=== PATIENT | female | born 1945 | race Caucasian/White ===

== ENCOUNTER → 2016-09-13 | Outpatient (CLI) | payer OTHER ==
[~2016-09-13] MED LIST: ASPI81TA28 PO; CALC600T9 PO; CARV12.52 PO; CINN1CAP2 PO; CRAN1CAP15 PO; FLUT27.5; GABA1CAP5 PO; GABA800T PO; GLC/500 PO; HYZ/50125 PO; MULTTAB58 PO; NXM/40 PO; OMEG10007 PO; PRED1SUS3 OPR; SIMV10TA2 PO; TERA5CAP PO
[2016-09-13 13:09] LABS: ALT/SGPT 23 U/L (12-78); BLOOD UREA NITROGEN 25 mg/dl (7-18); BUN/CREATININE RATIO 32.8 (10-20); CALCIUM 9.1 mg/dl (8.5-10.1); CARBON DIOXIDE 31 mmol/L (21-32); CHLORIDE 103 mmol/L (98-107); CHOLESTEROL 176 mg/dl (0-200); CREATININE 0.75 mg/dl (0.60-1.20); GLUCOSE 117 mg/dl (70-99); POTASSIUM 3.7 mmol/L (3.5-5.1); SODIUM 142 mmol/L (136-145)
[2016-09-13 13:12] LABS: ALB/GLOB RATIO 1.1 (0.9-2); ALKALINE PHOSPHATASE 42 U/L (45-117); AST/SGOT 18 U/L (15-37); CHOLESTEROL/HDL RATIO 3.2; HDL CHOLESTEROL 55 mg/dl; LDL CHOLESTEROL CALCULATED 84 mg/dl; TRIGLYCERIDES 184 mg/dl (0-150); VERY LOW DENSITY LIPOPROT CALC 37 mg/dl
[2016-09-13 13:50] LABS: ESTIMATED AVERAGE GLUCOSE 140 mg/dl; HA1C FLAG Normal (Normal)
== END | disposition home or self-care (01) ==
LOC: C.LABBFT 07:59
PROVIDERS: ATTEND Nurse Practitioner
DX: E11.9 Type 2 diabetes mellitus without complications (principal)

== ENCOUNTER → 2016-09-29 | Outpatient (CLI) | payer OTHER ==
--- NOTE | 2016-09-29 11:22 | DIAGNOSTIC IMAGING REPORT ---
RIGHT FOOT 3 VIEWS CLINICAL HISTORY: Right foot injury. FINDINGS: 3 views of the right foot are obtained. No prior studies are available for comparison at the time of dictation. The skeletal structures are osteopenic. A high arch is noted. No acute fracture is seen. The joint spaces of the foot appear well-maintained. The overlying soft tissues are within normal limits. IMPRESSION: Generalized osteopenia. No acute bony abnormality is seen. Electronically signed by: Buck Magaña M.D. 09/29/2016 11:20 AM Dictated Date/Time: 09/29/2016 11:19 AM
== END | disposition home or self-care (01) ==
LOC: C.RAD1850 10:28
PROVIDERS: ATTEND Nurse Practitioner
DX: S99.929A Unspecified injury of unspecified foot, initial encounter (principal); X58.XXXA Exposure to other specified factors, initial encounter; M85.871 Other specified disorders of bone density and structure, right ankle and foot

== ENCOUNTER → 2017-03-31 | Outpatient (CLI) | payer OTHER ==
[2017-03-31 13:04] LABS: ESTIMATED AVERAGE GLUCOSE 140 mg/dl; HA1C FLAG Normal (Normal)
[2017-03-31 13:19] LABS: ALT/SGPT 22 U/L (12-78); AST/SGOT 16 U/L (15-37); BLOOD UREA NITROGEN 20 mg/dl (7-18); BUN/CREATININE RATIO 28.8 (10-20); CALCIUM 8.6 mg/dl (8.5-10.1); CARBON DIOXIDE 31 mmol/L (21-32); CHLORIDE 105 mmol/L (98-107); CREATININE 0.69 mg/dl (0.60-1.20); GLUCOSE 117 mg/dl (70-99); POTASSIUM 3.6 mmol/L (3.5-5.1); SODIUM 142 mmol/L (136-145)
[2017-03-31 13:21] LABS: ALB/GLOB RATIO 1.1 (0.9-2); ALKALINE PHOSPHATASE 41 U/L (45-117); CHOLESTEROL 176 mg/dl (0-200); CHOLESTEROL/HDL RATIO 3.5; HDL CHOLESTEROL 50 mg/dl; LDL CHOLESTEROL CALCULATED 82 mg/dl; TRIGLYCERIDES 220 mg/dl (0-150); VERY LOW DENSITY LIPOPROT CALC 44 mg/dl
== END ==
LOC: C.LABBFT 08:18
PROVIDERS: ATTEND Nurse Practitioner
DX: E11.9 Type 2 diabetes mellitus without complications (principal); M85.80 Other specified disorders of bone density and structure, unspecified site

== ENCOUNTER → 2017-09-21 | Outpatient (CLI) | payer OTHER ==
[~2017-09-21] MED LIST changes: +GABA-1220 PO; -GABA1CAP5 PO
[2017-09-21 12:42] LABS: HEMATOCRIT 40.8 % (37-47); HEMOGLOBIN 13.6 g/dL (12.0-16.0); MEAN CELL VOLUME 88.1 fL (80-100); MEAN CORPUSCULAR HEMOGLOBIN 29.4 pg (25-34); MEAN CORPUSCULAR HGB CONC 33.3 g/dl (32-36); MEAN PLATELET VOLUME 12.1 fL (7.4-10.4); PLATELET COUNT 181 K/uL (130-400); RED CELL DISTRIBUTION WIDTH CV 14.4 % (11.5-14.5); RED CELL DISTRIBUTION WIDTH SD 46.4 fL (36.4-46.3); WHITE BLOOD COUNT 4.26 K/uL (4.8-10.8)
[2017-09-21 13:09] LABS: ALBUMIN 3.5 gm/dl (3.4-5.0); ALT/SGPT 24 U/L (12-78); AST/SGOT 17 U/L (15-37); BLOOD UREA NITROGEN 19 mg/dl (7-18); CALCIUM 8.9 mg/dl (8.5-10.1); CARBON DIOXIDE 30 mmol/L (21-32); CREATININE 0.76 mg/dl (0.60-1.20); GLUCOSE 119 mg/dl (70-99); POTASSIUM 3.6 mmol/L (3.5-5.1); SODIUM 141 mmol/L (136-145)
[2017-09-21 13:11] LABS: ALKALINE PHOSPHATASE 43 U/L (45-117); CHOLESTEROL 161 mg/dl (0-200); LDL CHOLESTEROL CALCULATED 67 mg/dl
[2017-09-21 13:14] LABS: HEMOGLOBIN A1C 6.6 % (4.5-5.6)
== END | disposition home or self-care (01) ==
LOC: C.LABBFT 08:04
PROVIDERS: ATTEND Nurse Practitioner Family
DX: E11.9 Type 2 diabetes mellitus without complications (principal)

== ENCOUNTER → 2017-10-06 | Outpatient (CLI) | payer OTHER | LOC: C.LABBFT 08:08 | PROVIDERS: ATTEND Nurse Practitioner | DX: N39.0 Urinary tract infection, site not specified (principal) ==

== ENCOUNTER 2023-02-08 07:29 | Inpatient (IN) ==
--- NOTE | 2023-02-02 14:48 | Anesthesiology Consultation ---
Date of Service February 02, 2023 Assessment & Plan (1) Encounter for pre-operative examination: Plan - check BSG am DOS. - Case discussed in extensive detail with Dr. Rinaldi who advised patient is acceptable to proceed with surgery as scheduled without further evaluation, testing or intervention from his standpoint. - right arm restriction. - [facility] [employer] note 01/25/23 [place]: "...Readings reviewed on [facility] this morning, patients BP was found to be elevated at 213/94, this was 2 hours after medication administration. She was scheduled to have a lung biopsy today in , this unfortunately had to be canceled due to elevated BP. Most recent home readings: 148/58 134/57 166/72 167/69 She stated she is apprehensive to increase spironolactone at this time since it has really increased her urinary output. She stated she is taking it in the morning and is up all night urinating, wondering if she can take it in the evening instead. I told her this would likely be fine although it may make this worse...increase terazosin to 10mg BID. - Will monitor BP readings on [facility], and call patient is further adjustments needed. She is tolerating the increase in her coreg well..." - 08/24/22 urine metanephrine 128; urine normetanephrine 507, U total metanephrines 635. - HTN clinic 01/11/23 [place]: "...Pheochromocytoma ruled out by 24 hour urine metanephrines which were within range...Adrenal nodule- Renin/Aldosterone ration suspicous for form of hyperaldosteronism, agree with spironolactone, appears to so far be responding well to the medication. large descripency in her home BP readings versus in office today. Could benefit from further increase to 50mg if indicated in the future. 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 I did have conversation with the patient after procedure and she did not wish to pursue biopsy evaluation at that time and was hoping for watchful waiting. We agreed on a 3-month follow-up CT to evaluate lesion. Unfortunately, it appears to have either slightly increased in size versus maintained. Regardless, the given the patient's clinical history, smoking history, and suspicious findings on CT, bronchogenic malignancy does remain the diagnosis of exclusion. I did relay this information to the patient. She was initially hesitant to have anything performed, however I explained to her that evaluation was necessary for early treatment and I am unable to say that this is not a malignancy based on the procedure previously performed. I had discussed the case with radiology. They reviewed the images and felt that CT-guided biopsy is able to be performed. I did review this with the patient. She does agree to undergo CT-guided biopsy. Had a lengthy discussion regarding risks, benefits, and alternatives. She acknowledges the risks and consents. Will arrange CT-guided biopsy within the next few weeks to hopefully obtained definitive diagnosis moving forward. COPD and emphysema - CT demonstrates e mphysematous changes. Previously, the patient had no significant respiratory symptoms. She has since had an episode of bronchitis and has now had persistent cough and some occasional shortness of breath on exertion. She was noted to have an FEV1 to FVC ratio of 54% at that time. We had held off previously on inhalers as the patient was completely asymptomatic at that time. Given her return of symptoms and occasional use of albuterol, we will place the patient on LABA/LAMA combination. We will provide the patient with a sample of Stiolto today and see how she does with this medication. We can provide her with a prescription moving forward if she notices clinical benefit. She can continue to use her rescue inhaler otherwise..." - Per professor of exercise science on 02/02/2023: No known infectious disease contacts, current infectious disease symptoms in past 10 days or COVID positive test result in the past 90 days. Chart Review Chart Review: Acceptable Risk for Surgery and Patient NOT seen in Pre Admission Testing History Surgery Operation Date: 02/08/23 09:30 Proposed Procedures p Biopsy Lung CT Scan Anesthesia Sedation - Dillan Peters PA-C Height/Weight Height: 5 ft 4 in Weight: 54.431 kg Allergies Allergy/AdvReac Type Severity Reaction Status Date / Time amoxicillin Allergy Unknown hives, Verified 02/02/23 14:03 nausea cephalexin [From Keflex] Allergy Unknown Rash Verified 02/02/23 14:03 ciprofloxacin [From Cipro] Allergy Unknown Hives Verified 02/02/23 14:03 codeine Allergy Unknown hives, Verified 02/02/23 14:03 nausea (percocet is ok per pt) Iodinated Contrast Media Allergy Unknown HIVES Verified 02/02/23 14:03 nitrofurantoin Allergy Unknown shortness Verified 02/02/23 14:03 [From Macrobid] of breath Penicillins Allergy Unknown Rash Verified 02/02/23 14:03 trimethoprim Allergy Unknown Hives Verified 02/02/23 14:03 amlodipine AdvReac Unknown Dizziness Verified 02/02/23 14:03 blue dye AdvReac Unknown SUICIDAL Verified 02/02/23 14:03 THOUGHTS, HALLUCINATIONS duloxetine AdvReac Unknown high Verified 02/02/23 14:03 anxiety pollen extracts AdvReac Unknown cough and Verified 02/02/23 14:03 sinus drainage tramadol AdvReac Unknown SHAKINESS, Verified 02/02/23 14:03 NAUSEA/high anxiety chlorthalidone AdvReac Verified 02/02/23 14:03 Medications Home Medications Medication Instructions Recorded Confirmed Last Taken multivitamin 1 tab PO QAM #30 tabs 10/28/21 02/02/23 12/25/22 losartan 50 mg tablet 50 mg PO BID #180 tabs 06/01/22 02/02/23 12/26/22 metformin 1,000 mg tablet 500 mg PO TID 06/01/22 02/02/23 12/25/22 blood sugar diagnostic (OneTouch #200 ea 07/12/22 01/11/23 Unknown Verio test strips) ascorbic acid (vitamin C) 1,000 mg 1,000 mg PO QAM 08/03/22 02/02/23 12/25/22 tablet,extended release aspirin 81 mg tablet,delayed 81 mg PO HS 08/03/22 02/02/23 12/25/22 release cranberry 500 mg capsule 450 mg PO QAM 08/03/22 02/02/23 12/25/22 gabapentin 400 mg capsule 400 - 800 mg PO BID 08/03/22 02/02/23 12/26/22 omega 8-rhr-eqo-fish oil 1,000 mg 1 cap PO QAM 08/03/22 02/02/23 12/25/22 (120 mg-180 mg) capsule (Fish Oil) esomeprazole magnesium 40 mg 20 mg PO QDD 09/28/22 02/02/23 12/26/22 capsule,delayed release albuterol sulfate 90 mcg/actuation 2 puff inhalation QID PRN 11/21/22 02/02/23 11/22/22 aerosol inhaler shortness of breath or wheezing #8.5 grams alendronate 70 mg tablet 70 mg PO WK 12/15/22 02/02/23 12/25/22 cholecalciferol (vitamin D3) 50 50 mcg PO QAM 12/15/22 02/02/23 12/25/22 mcg (2,000 unit) capsule (Vitamin D3) fluticasone propionate 50 1 spray intranasal UD PRN 12/15/22 02/02/23 Unknown mcg/actuation nasal Congestion spray,suspension (Flonase Allergy Relief) rosuvastatin 20 mg tablet 20 mg PO HS 12/15/22 02/02/23 12/25/22 terazosin 10 mg capsule 10 mg PO BID #90 caps 01/25/23 02/02/23 Unknown carvedilol 25 mg tablet 25 mg PO BID #180 tabs 02/01/23 02/02/23 Unknown tiotropium 2.5 mcg-olodaterol 2.5 2 puff inhalation DAILY #4 grams 02/01/23 02/02/23 Unknown mcg/actuation mist for inhalation (Stiolto Respimat) spironolactone 25 mg tablet 25 mg PO QAM 02/02/23 02/02/23 Unknown Past Medical History Medical History (Updated 02/02/23 @ 14:38 by Bella Henderson PA-C) Acid reflux CAD (coronary artery disease) Chronic obstructive pulmonary disease History of breast cancer X2 (21 YR AGO/HX RADIATION) MOST RECENT 8 YR AGO/DOUBLE MASTECTOMY WITH TRANFLAP: R limb restriction History of bronchitis S/P 2 WKS FOLLOWING BRONCHOSOPY...SOME COUGH REMAINS. History of colon polyps X3 JUL 2022...PUT CLIPS IN HX POLYPS...REASON FOR UPCOMING COLONOSCOPY History of high blood pressure WHILE CHECKING IN FOR COLONOSCOPY JUL 2022/REMAINED HIGH FOR SEVERAL DAYS. Hypertension Kidney cysts Limb alert care status R arm Low magnesium level DECEMBER 02 2022..[facility] ED VISIT Mild mitral valve regurgitation NO CARDS Pulmonary nodule UPCOMING CT FOR DECEMBER 28 2022 Renal artery stenosis HAD RECENT APT WITH DR. AHUJA/NEXT FOLLOW UP 2023 FOR ULTRASOUND Syncope and collapse DECEMBER 02 2022... [facility] ED VISIT ...UNKNOWN ETIOLOGY / ? R/T TROUBLE WITH A MEDICATION Type 2 diabetes, controlled, with neuropathy NIDDM Unique anesthetic considerations present on preoperative anesthesia assessment SCARED OF ANESTHESIA / NO HX PROBLEMS WITH IT PREVIOUSLY ; MOST RECENT PROCEDURE IN SEPTEMBER 2022- TROUBLE COMING OUT OF. Past Family History Family History Mother Myocardial infarction Family history of diabetes mellitus Brother Lung cancer Denies family history of Ovarian cancer Prostate cancer Breast cancer Colorectal cancer Past Surgical History Surgical History History of bilateral mastectomy WITH TRANFLAP History of bronchoscopy SEPTEMBER 2022 History of colonoscopy most recent 12/2022 History of tooth extraction Hx of cataract surgery RT/LEFT Hx of hysterectomy Social History Smoking Status: Former smoker tobacco type: cigarettes Smoking cigarettes per day: 10 YEARS AGO>IN THE PAST YEAR, I HAVE HAD 20 CIG WITHIN THE LAST YEAR Do You Dip or Chew Tobacco: No Smoking End Date: 10 years ago Hx Alcohol Use: No Hx Substance Use: No substance use type: does not use Lab Results Anesthesia Preop Results Results Anesthesia Widget: WBC 5.60 K/ul (4.8-10.8) 01/12/23 Hgb 12.7 g/dl (12.0-16.0) 01/12/23 Hct 39.3 % (37.0-47.0) 01/12/23 Plt 162 K/uL (130-400) 01/12/23 Na 143 mmol/L (136-145) 12/28/22 K 4.0 mmol/L (3.5-5.1) 12/28/22 Cl 109 mmol/L (98-107) H 12/28/22 CO2 29 mmol/L (21-32) 12/28/22 BUN 16 mg/dl (6-23) 12/28/22 Creat 0.73 mg/dl (0.6-1.2) 12/28/22 Glucose Level 149 mg/dl (70-99(Fasting)) H 12/28/22 POC Glucose 92 mg/dl (70-99) 12/26/22 PT 11.4 Seconds (9.0-12.0) 01/12/23 PTT 30.5 Seconds (21.0-31.0) 01/12/23 INR 1.0 (0.9-1.1) 01/12/23 Testing Electrocardiogram Date: 11/25/22 Sinus bradycardia, rate 58 bpm Possible LA enlargement Nonspecific ST abnormality Chest X-Ray Date: 11/25/22 1 Cardiomegaly and emphysema with no acute cardiopulmonary abnormality identified. 2. A 1.9 cm nodule is again seen at the left lung base. This was better assessed on the recent chest CT. Echocardiogram Date: 11/18/21 EF 65-70% No regional wall motion abnormalities Moderate cLVH Mildly dilated atria bilat Mild mitral valve thickening with moderate mitral annular calcification, mild mitral regurgitation Mild tricuspid regurgitation Mild pulmonic valvular regurgitation Pulmonary Function Test Date: 09/21/22 Moderate obstructive lung dysfunction Significant bronchodilator response Normal TLC with normal ERV Moderate decrease in DLCO, follow-up hemoglobin Other Testing Chest CT 12/28/22 1. No significant change in the spiculated 1.7 cm left lower lobe nodule. A primary bronchogenic malignancy remains the diagnosis of exclusion. 2. Emphysema. 3. Mediastinal and right supraclavicular lymphadenopathy persists. 4. Trace bilateral pleural effusions. 5. Additional findings as described above. Head CT 11/25/22 There is no hemorrhage, mass effect, or evidence of acute territorial ischemia by CT criteria. PET scan 09/29/22 skull base to mid thigh 1. No significant FDG uptake associated with the 1.6 cm left lower lobe nodule. However, this remains suspicious for a primary bronchogenic malignancy by CT imaging alone. Therefore, short-term chest CT follow-up and/or tissue diagnosis recommended for further evaluation. 2. Mild right supraclavicular and mediastinal lymphadenopathy with mild FDG uptake. 3. A 2 cm left adrenal gland nodule with minimal FDG uptake. This is indeterminate but favors a benign adenoma. This bears watching on future examinations. Abdomen pelvis CT 09/01/22 Postoperative changes suggestive of prior bilateral mastectomy. Cardiomegaly with coronary arterial and mitral annular calcifications. Trace pleural effusions. Emphysema with bronchial wall thickening suggestive of bronchitis. Solid 1.5 x 1.5 cm nodule within the basal left lower lobe on image 34 series 3 with questioned central macroscopic fat attenuation, limited evaluation secondary to respiratory motion artifact. No pneumatosis or pneumoperitoneum. The unenhanced spleen, mildly atrophic pancreas, slightly contracted gallbladder and unenhanced liver appear unremarkable. 1.2 cm hypodense right adrenal gland nodule suggestive of a probable adenoma. Indeterminate 1.7 x 1.4 cm soft tissue attenuating nodule within the left adrenal gland, Hounsfield unit of 47. Punctate nonobstructing calculus of the inferior pole left kidney. There is mild cortical scarring also noted within the inferior pole left kidney. There are a few right-sided renal cysts measuring up to 4.3 cm. No ureteral calculi or hydronephrosis. Decompressed urinary bladder. No adnexal mass lesions. Atherosclerosis of the abdominal aorta and branch vessels. Mild ectasia of the distal infrarenal abdominal aorta measuring 2.0 x 1.9 cm. There may be a chronic calcified abdominal aortic dissection. No lymph adenopathy identified. No bowel obstruction or bowel wall thickening. Colonic diverticulosis. Surgical clips noted within the transverse colon. Prior appendectomy. No ascites or mesenteric inflammation. Degenerative changes of the spine, pelvis and hips. No acute fracture or destructive bone lesion. Indeterminate partially imaged area of sclerosis noted involving the T10 vertebral body. IMPRESSION: 1. No acute intra-abdominal or intrapelvic abnormality. 2. Pulmonary emphysema with indeterminate 1.5 cm solid nodule of the basal left lower lobe. Pulmonology consultation with follow-up is needed. 3. Trace pleural effusions. 4. Left nephrolithiasis. 5. Additional findings as above. Renal artery duplex 09/01/22 1. Atherosclerosis with elevated peak systolic velocities within the proximal aspect of the left renal artery suggestive of renal artery stenosis. 2. Left nephrolithiasis.
[~2023-02-08 07:29] MED LIST changes: -ASPI81TA28 PO; -CALC600T9 PO; -CARV12.52 PO; -CINN1CAP2 PO; -CRAN1CAP15 PO; -FLUT27.5; -GABA-1220 PO; -GABA800T PO; -GLC/500 PO; -HYZ/50125 PO; +LR 15ML/HR IV SCH; -MULTTAB58 PO; -NXM/40 PO; -OMEG10007 PO; -PRED1SUS3 OPR; -SIMV10TA2 PO; -TERA5CAP PO
[2023-02-08] MEDS ORDERED: MIDAZOLAM HCL 1 MG/ML 2ML VIAL ONE (08:25)
[2023-02-08] MEDS ORDERED: PROPOFOL IV EMULSION 10 MG/ML 20 ML VIAL IV ONE ×2 (08:26→10:28)
[2023-02-08] MEDS ORDERED: LIDOCAINE 2% 2 ML VIAL/AMP(20MG/ML) INFIL ONE ×2 (08:32→10:28)
[2023-02-08] MEDS ORDERED: ePHEDrine sulfate 50 MG/ML AMP IV PRN (08:33)
[2023-02-08] MEDS ORDERED: ATROPINE SULFATE 0.1 MG/ML 10ML SYR IV PRN (08:33)
[2023-02-08] MEDS ORDERED: hydrALAZINE HCL 20 MG/ML VIAL IV STA ×2 (08:33→11:22)
[2023-02-08] MEDS ORDERED: ONDANSETRON INJ 2 MG/ML 2 ML VIAL IV PRN ×2 (08:33→13:21)
[2023-02-08] MEDS ORDERED: ALBUT/IPRATROP 3MG/0.5MG NEB 3 ML VIAL NEB STA (08:33)
[2023-02-08] MEDS ORDERED: hydrALAZINE HCL 20 MG/ML VIAL ONE ×2 (08:37→11:17)
--- NOTE | 2023-02-08 10:43 | Radiology Progress Note ---
Date of Service February 08, 2023 Radiology Progress Note Pt for CT guided LLL lung nodule core bx with anesthesia. Anticipated PTX with CT insertion due to lesion location and COPD. Pleural pigtail placed post bx due to increasing PTX. She tolerated both procedures well. Post CT scan showed resolved left pneumothorax with adequate pleural pigtail placement. Will keep pigtail to 20cm H2O suction. She was sent to PACU for recovery and arrangements will be made for 23 hour observation. Requesting provider notified. Results & Data Vital Signs (Past 12 Hours) Vital Signs Pulse Resp Pulse Ox O2 Del Method 02/08/23 08:45 56 L 20 96 Room Air
[2023-02-08] MEDS: fentaNYL citrate PF 100 MCG/2 ML VIAL IV PRN ×4 (11:01→11:35)
--- NOTE | 2023-02-08 12:19 | History & Physical Report ---
Date of Service February 08, 2023 Assessment & Plan (1) Pneumothorax after biopsy: Plan: occurred iatrogenically during procedure for left lung nodule CT guided biopsy with IR chest tube placed by IR and f/u CXR with almost complete resolution, with 7mm PTX -admit for obs to PCU for chest tube management -continue supplemental O2 to keep POx> 90% -pain control with APAP and IV dilaudid prn -consult PULM for further chest tube management -repeat CXR in AM or sooner prn any decompensation in condition (2) Pulmonary nodule: Plan: LLL 1.7cm nodule. Had EBUS with biopsy in 09/2022 without enough tissue for diagnosis; then had repeat chest CT 12/2022 which showed stable to increased size and now with IR guided CT biopsy w/ samples taken await Path consult PULM and needs f/u when Path results available with adrenal nodule present and stable for long time PET scan earlier this year without significant uptake in nodule but may be slow growing malignancy CT Chest also with mediastinal and right supraclavicular LISSET needs to be followed does have a h/o breast CA with recurrence in 2012, treated with mastectomy and radiation (3) Hypertension: Plan: has history of accelerated HTN and borderline hyperaldosteronism, follows with HTN clinic now on spironolactone-was to increase to 50mg daily from 25mg but she is hesitant to do so because she is already urinating so frequently-keep at 25mg for now and increase if willing to try continue COreg 25mg bid,losartan 50mg po bid, terazosin 5mg po bid follow BPs-normal for now (4) COPD (chronic obstructive pulmonary disease): Plan: continue LAMA/LABA-sub with Anoro Ellipta on formulary for now she reports running out of Stiolto sample at home and her insurance won't cover it-needs new Rx for Anoro on discharge which she was told is covered continue albuterol prn (5) Hyperlipidemia: Plan: continue statin, hold fish oil for now (6) CAD (coronary artery disease): Plan: seen on CT imaging, no cath done continue ASA, statin, COreg (7) Diabetic peripheral neuropathy: Plan: continue home gabapentin (8) Type 2 diabetes mellitus: Plan: hold home metformin while inpatient and use Novolog supplemental insulin as needed check A1C in AM but was well controlled at 7.3% earlier this Spring ADA diet (9) Renal artery stenosis: Plan: on LEFT, not severe enough for intervention, follows with Vascular (10) Osteopenia: Plan: continue Fosamax at home, vit D (11) GERD (gastroesophageal reflux disease): Plan: continue PPI no acute issues Plan DVT prophylaxis-SCDs Dispo-admit on obs to PCU Discussed case with Dr. Melgar of PULM and Mr. Peters of IR History of Present Illness Chief Complaint: Pneumothorax Primary Care Provider: SAURABH Malin This pt is a 77 yo female with a h/o COPD, HTN, Left DUSTY, GERD, breast CA s/p bilat mastectomy, DMII with neuropathy, osteoporosis who had a CT guided lung nodule biopsy today with IR and had an iatrogenic pneumothorax, moderate in size. A chest tube was placed by IR immediately afterwards and f/u CXR shows almost complete resolution of the PTX. I saw her in the PACU and she was still drowsy from anesthesia and pain medicine but reported left rib pain at site of chest tube as well as a mild headache she actually had prior to the procedure today. She reports she was up all night long urinating due to her water pill and also due to anxiety over having the procedure today. Denies any SOB over her usual, no nausea. Last BM was thi AM before the procedure. She took her BPs meds this AM except for the aldactone and losartan. She will be admitted for PTX and chest tube management. Allergies Allergy/AdvReac Type Severity Reaction Status Date / Time amoxicillin Allergy Unknown hives, Verified 02/08/23 08:12 nausea cephalexin [From Keflex] Allergy Unknown Rash Verified 02/08/23 08:12 ciprofloxacin [From Cipro] Allergy Unknown Hives Verified 02/08/23 08:12 codeine Allergy Unknown hives, Verified 02/08/23 08:12 nausea (percocet is ok per pt) Iodinated Contrast Media Allergy Unknown HIVES Verified 02/08/23 08:12 nitrofurantoin Allergy Unknown shortness Verified 02/08/23 08:12 [From Macrobid] of breath Penicillins Allergy Unknown Rash Verified 02/08/23 08:12 trimethoprim Allergy Unknown Hives Verified 02/08/23 08:12 amlodipine AdvReac Unknown Dizziness Verified 02/08/23 08:12 blue dye AdvReac Unknown SUICIDAL Verified 02/08/23 08:12 THOUGHTS, HALLUCINATIONS duloxetine AdvReac Unknown high Verified 02/08/23 08:12 anxiety pollen extracts AdvReac Unknown cough and Verified 02/08/23 08:12 sinus drainage tramadol AdvReac Unknown SHAKINESS, Verified 02/08/23 08:12 NAUSEA/high anxiety chlorthalidone AdvReac Verified 02/08/23 08:12 Home Medications Medication Instructions Recorded Confirmed Type multivitamin 1 tab PO QAM #30 tabs 10/28/21 02/08/23 Rx losartan 50 mg tablet 50 mg PO BID #180 tabs 06/01/22 02/08/23 Rx metformin 1,000 mg tablet 500 mg PO TID 06/01/22 02/08/23 History blood sugar diagnostic (OneTouch #200 ea 07/12/22 01/11/23 Rx Verio test strips) ascorbic acid (vitamin C) 1,000 mg 1,000 mg PO QAM 08/03/22 02/08/23 History tablet,extended release aspirin 81 mg tablet,delayed 81 mg PO HS 08/03/22 02/08/23 History release cranberry 500 mg capsule 450 mg PO QAM 08/03/22 02/08/23 History gabapentin 400 mg capsule 400 - 800 mg PO BID 08/03/22 02/08/23 History omega 0-zkh-cfn-fish oil 1,000 mg 1 cap PO QAM 08/03/22 02/08/23 History (120 mg-180 mg) capsule (Fish Oil) esomeprazole magnesium 40 mg 20 mg PO QDD 09/28/22 02/08/23 History capsule,delayed release albuterol sulfate 90 mcg/actuation 2 puff inhalation QID PRN 11/21/22 02/08/23 Rx aerosol inhaler shortness of breath or wheezing #8.5 grams alendronate 70 mg tablet 70 mg PO WK 12/15/22 02/08/23 History cholecalciferol (vitamin D3) 50 50 mcg PO QAM 12/15/22 02/08/23 History mcg (2,000 unit) capsule (Vitamin D3) fluticasone propionate 50 1 spray intranasal UD PRN 12/15/22 02/08/23 History mcg/actuation nasal Congestion spray,suspension (Flonase Allergy Relief) rosuvastatin 20 mg tablet 20 mg PO HS 12/15/22 02/08/23 History carvedilol 25 mg tablet 25 mg PO BID #180 tabs 02/06/23 02/08/23 Rx spironolactone 50 mg tablet 50 mg PO QAM #30 tabs 02/06/23 02/08/23 Rx terazosin 5 mg capsule 5 mg PO BID #90 caps 02/06/23 02/08/23 Rx Past Med/Surg History Medical History Acid reflux CAD (coronary artery disease) Chronic obstructive pulmonary disease History of breast cancer X2 (21 YR AGO/HX RADIATION) MOST RECENT 8 YR AGO/DOUBLE MASTECTOMY WITH TRANFLAP: R limb restriction History of bronchitis S/P 2 WKS FOLLOWING BRONCHOSOPY...SOME COUGH REMAINS. History of colon polyps X3 JUL 2022...PUT CLIPS IN HX POLYPS...REASON FOR UPCOMING COLONOSCOPY History of high blood pressure WHILE CHECKING IN FOR COLONOSCOPY JUL 2022/REMAINED HIGH FOR SEVERAL DAYS. Hypertension Kidney cysts Limb alert care status R arm Low magnesium level DECEMBER 02 2022..[facility] ED VISIT Mild mitral valve regurgitation NO CARDS Pulmonary nodule UPCOMING CT FOR DECEMBER 28 2022 Renal artery stenosis HAD RECENT APT WITH DR. AHUJA/NEXT FOLLOW UP 2023 FOR ULTRASOUND Syncope and collapse DECEMBER 02 2022... [facility] ED VISIT ...UNKNOWN ETIOLOGY / ? R/T TROUBLE WITH A MEDICATION Type 2 diabetes, controlled, with neuropathy NIDDM Unique anesthetic considerations present on preoperative anesthesia assessment SCARED OF ANESTHESIA / NO HX PROBLEMS WITH IT PREVIOUSLY ; MOST RECENT PROCEDURE IN SEPTEMBER 2022- TROUBLE COMING OUT OF. Surgical History History of bilateral mastectomy WITH TRANFLAP History of bronchoscopy SEPTEMBER 2022 History of colonoscopy most recent 12/2022 History of tooth extraction Hx of cataract surgery RT/LEFT Hx of hysterectomy Family History Mother Myocardial infarction Family history of diabetes mellitus Brother Lung cancer Denies family history of Ovarian cancer Prostate cancer Breast cancer Colorectal cancer Social History Smoking Status: Former smoker Tobacco Type: Cigarettes Age Started Using Tobacco: 16; Age Quit Using Tobacco: 47; packs per day: 66; Cigarettes Per Day: 10 YEARS AGO>IN THE PAST YEAR, I HAVE HAD 20 CIG WITHIN THE LAST YEAR; Smoking End Date: 10 years ago; Second Hand Exposure: No; Do You Dip or Chew Tobacco: No; Tobacco Cessation Education Requested by Patient: No Hx Alcohol Use: No Hx Substance Use: No Preferred Language: Swiss Communication Ability: Effective Visual Impairment: No Limitations Hearing Ability: Normal Roller Skate Repairer Required: No Beliefs That Will Affect Care: None marital status: / Current Living Situation: Alone current occupational status: employed and retired 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, 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 [employer] Other Information That Helps Us Care for You: No Feels Safe at Home: Yes Safety Concerns: Feels Safe At This Time Childhood Exposure to Second-Hand Smoke: Yes Diet: regular caffeine: No Dental Care, Regularly: Yes Physical Activity Frequency: 3-4 Times per Week Seatbelt Use: always Sunscreen Use: Yes Assistive Devices: Denture - Upper and Glasses Review of Systems Review of Systems: All systems reviewed & are unremarkable except as noted in HPI & below Physical Exam Constitutional: WD/WN, vitals as above Eyes: PERRL, conjunctivae normal, anicteric sclerae Neck: trachea midline, no thyromegaly Respiratory: normal respiratory effort Auscultation: + diminished lung sounds (bases bilat); no crackles and no wheezes Cardiovascular: RRR, no murmur, no edema Chest (Breasts): Chest: normal inspection of chest Gastrointestinal (Abdomen): normal bowel sounds, soft, nontender, no hepatosplenomegaly Musculoskeletal: Extremities: extremities normal to inspection; no cyanosis and no clubbing Skin: no rashes, warm and dry Neurologic: moves all extremities and awake; no focal motor deficits Psychiatric: A+Ox3, euthymic affect Lymphatic: no lymphedema Results & Data Results & Data Vital Signs (Past 12 Hours) Vital Signs Temp Pulse Resp BP Pulse Ox O2 Del Method O2 Flow Rate 02/08/23 12:10 60 15 146/49 H 98 Nasal Cannula 3 02/08/23 12:00 61 15 147/52 H 98 Nasal Cannula 3 02/08/23 11:50 59 L 15 147/51 H 98 Nasal Cannula 3 02/08/23 11:40 58 L 17 149/52 H 98 Nasal Cannula 3 02/08/23 11:30 60 13 169/63 H 98 Nasal Cannula 3 02/08/23 11:20 55 L 13 195/64 H 98 Nasal Cannula 3 02/08/23 11:10 57 L 21 190/66 H 98 Nasal Cannula 3 02/08/23 11:00 57 L 16 196/61 H 98 Nasal Cannula 3 02/08/23 10:55 59 L 15 204/66 H 99 Nasal Cannula 3 02/08/23 10:45 64 20 186/60 H 95 Nasal Cannula 3 02/08/23 10:35 66 13 181/70 H 100 Oxymask 9 02/08/23 10:25 59 L 15 144/53 H 100 Oxymask 9 02/08/23 10:16 36.0 C L 62 16 130/44 L 100 Oxymask 9 02/08/23 08:45 56 L 20 96 Room Air Laboratory Results no labs to review Diagnostic Findings CXR and CT Chest reviewed Code Status & VTE Plan Code Status DNR/DNI as per discussion with patient VTE Prophylaxis Plan VTE Prophylaxis will be ordered: Yes PG Care Time/CCT Total # of Minutes Spent Total Time Spent with Patient: Total time spent is greater than 50% in coordination of care (as documented) at patient's floor/unit and/or counseling patient: Coding Level of Care Code 37968 INT INP/OBS CARE 375MIN Diagnoses Pneumothorax after biopsy J95.811 Pulmonary nodule R91.1 Hypertension I10 COPD (chronic obstructive pulmonary disease) J44.9 Hyperlipidemia E78.5 CAD (coronary artery disease) I25.10 Diabetic peripheral neuropathy E11.42 Type 2 diabetes mellitus E11.9 Renal artery stenosis I70.1 Osteopenia M85.80 GERD (gastroesophageal reflux disease) K21.9
[2023-02-08] MEDS: HYDROmorphone INJ 0.5 MG/0.5 ML SYR IV PRN ×4 (12:26→20:54)
--- NOTE | 2023-02-08 13:00 | XRay Report ---
XR chest 1V portable HISTORY: 77 years-old Female s/p left lung nodule biopsy with pleural pigtail status post biopsy of a left lower lobe pulmonary nodule COMPARISON: Chest CT of same day and also 12/28/2022 TECHNIQUE: AP view of the chest FINDINGS: Cardiomegaly. Atherosclerosis of the aorta. Emphysema with chronic fibrotic changes. Surgical clips p roject over the left heart border. Status post biopsy of the previously noted spiculated and irregula r solid nodule within the basal left lower lobe. Status post placement of a pigtail pleural catheter projected in the lateral left lung base. Trace apical pneumothorax with pleural separation of 7 mm. IMPRESSION: 1. Status post biopsy of the left lower lobe nodule with trace left apical postprocedural pneumothora x. 2. Pigtail pleural catheter projects over the lateral left lung base. 3. Emphysema with chronic interstitial coarsening. ACT 112: Negative or not required by law. The above report was generated using voice recognition software. It may contain grammatical, syntax o r spelling errors. Electronically signed by: Syed Reyes M.D. 02/08/2023 12:59 PM
[2023-02-08] MEDS ORDERED: DEXTROSE 50% 50 ML SYRINGE IV PRN (13:21)
[2023-02-08] MEDS ORDERED: GLUCOSE 40% GEL 15 GM TUBE PO PRN (13:21)
[2023-02-08] MEDS ORDERED: POLYETHYLENE (MIRALAX) 17 GM PACK PO PRN (13:21)
[2023-02-08] MEDS ORDERED: CARBOHYDRATES FOR HYPOGLYCEMIA PO PRN (13:21)
[2023-02-08] MEDS ORDERED: ALBUTEROL HFA 8 GM INHALER INH PRN (13:21)
[2023-02-08] MEDS ORDERED: GLUCAGON FOR INJ 1 MG VIAL SQ PRN (13:21)
[2023-02-08] MEDS ORDERED: GLUCOSE 10 TAB/TUBE PO PRN (13:21)
[2023-02-08] MEDS ORDERED: FLUTICASONE PROPIONATE NA SPR 16 GM BTL NAE PRN (13:21)
--- NOTE | 2023-02-08 13:29 | Anesthesiology Progress Note ---
Date of Service February 08, 2023 Anesthesia Post Procedure Vital Signs Vital Signs: Temp Pulse Resp BP Pulse Ox O2 Del Method O2 Flow Rate 02/08/23 13:15 60 20 134/44 L 97 Nasal Cannula 2 02/08/23 13:00 61 14 127/54 L 98 Nasal Cannula 2 02/08/23 12:45 59 L 20 142/52 H 96 Nasal Cannula 2 02/08/23 12:30 60 18 156/53 H 98 Nasal Cannula 2 02/08/23 12:20 36.5 C 67 15 177/63 H 95 Nasal Cannula 3 02/08/23 12:10 60 15 146/49 H 98 Nasal Cannula 3 02/08/23 12:00 61 15 147/52 H 98 Nasal Cannula 3 02/08/23 11:50 59 L 15 147/51 H 98 Nasal Cannula 3 02/08/23 11:40 58 L 17 149/52 H 98 Nasal Cannula 3 02/08/23 11:30 60 13 169/63 H 98 Nasal Cannula 3 02/08/23 11:20 55 L 13 195/64 H 98 Nasal Cannula 3 02/08/23 11:10 57 L 21 190/66 H 98 Nasal Cannula 3 02/08/23 11:00 57 L 16 196/61 H 98 Nasal Cannula 3 02/08/23 10:55 59 L 15 204/66 H 99 Nasal Cannula 3 02/08/23 10:45 64 20 186/60 H 95 Nasal Cannula 3 02/08/23 10:35 66 13 181/70 H 100 Oxymask 9 02/08/23 10:25 59 L 15 144/53 H 100 Oxymask 9 02/08/23 10:16 36.0 C L 62 16 130/44 L 100 Oxymask 9 02/08/23 08:45 56 L 20 96 Room Air Pain Intensity Left Chest: Pain Intensity: 5 Transfer of Care Handoff Completed per policy Notes Mental Status: alert / awake / arousable and participated in evaluation Patient Amnestic to Procedure: Yes Nausea / Vomiting: adequately controlled Pain: adequately controlled Airway Patency, RR, SpO2: see Notes below BP & HR: stable & adequate Hydration State: stable & adequate Anesthetic Complications: no major complications apparent and Pt Satisfied with anesthetic care Notes: Patient had pneumothorax 2/2 procedure. IR provider placed chest tube and planned for inpatient admission. Hospitalist service consulted and she was evaluated in PACU. Pain was treated and she will be transferred to monitored mason when bed available.
--- NOTE | 2023-02-08 14:25 | CT Scan Report ---
CT guided left lower lobe lung nodule core biopsy and left pleural pigtail catheter placement INDICATION: Left lower lobe lung nodule PROCEDURE: Procedure and risks were explained. Informed consent was obtained. A final timeout was com pleted. The patient was placed in a right lateral decubitus position on the CT exam table. The left l ateral thorax was prepped and draped in sterile fashion. 1% buffered lidocaine was utilized for skin anesthesia. The patient received IV sedation by the anesthesia department for the entire procedure. Utilizing CT guidance, a 19-gauge coaxial needle was advanced down into the left lower lobe lung nodu le. A 20-gauge core biopsy needle was advanced, and 3 cores were obtained and given to the lab. The c oaxial needle was removed. Post-CT imaging demonstrated a small to moderate left pneumothorax. Delaye d imaging showed an increase in the pneumothorax size, and therefore an 8 [place] locking pigtail cath eter was advanced into the left pleural space under CT guidance. The pigtail was sutured to the skin with 2-0 silk and placed to 20 cm H2O wall suction. Post CT imaging demonstrated almost complete reso lution of the left pneumothorax with adequate pigtail catheter placement. The patient was sent to PAC U and arrangements will be made for the patient to be admitted for 23 hour observation. IMPRESSION: Left lower lobe lung nodule core biopsy pleural pigtail catheter placement as detailed ab ove. Performed, dictated, and signed by Dillan Peters PA-C; to be co-signed by Dr. Jose Hernandez. Electronically signed by: Jose Hernandez M.D. 02/08/2023 5:24 PM
[2023-02-08] MEDS: INSULIN ASPART PER UNIT CHARGE SC SCH ×3 (15:12→21:03)
[2023-02-08] MEDS: PANTOprazole 40 MG TAB PO SCH (15:52)
[2023-02-08] MEDS: ACETAMINOPHEN 325 MG TAB PO PRN ×2 (16:01→20:53)
[2023-02-08 16:11] LABS: Basophils # (auto) 0.03 K/uL (0.00-0.20); Basophils % (auto) 0.5 %; Eosinophils # (auto) 0.16 K/uL (0.00-0.50); Eosinophils % (auto) 2.8 %; Hematocrit (blood only) 41.1 % (37.0-47.0); Hemoglobin 13.8 g/dl (12.0-16.0); Immature Granulocytes # (auto) 0.01 K/uL (0.01-0.20); Immature Granulocytes % (auto) 0.2 %; Lymphocytes # (auto) 1.56 K/uL (1.20-3.40); Lymphocytes % (auto) 27.6 %; Mean Corpuscular Hemoglobin 29.7 pg (25.0-34.0); Mean Corpuscular Hgb Conc 33.6 g/dL (32.0-36.0); Mean Corpuscular Volume 88.6 fL (80.0-100.0); Mean Platelet Volume 12.2 fL (9.4-12.4); Monocytes # (auto) 0.48 K/uL (0.11-0.59); Monocytes % (auto) 8.5 %; Neutrophils # (auto) 3.42 K/uL (1.40-6.50); Neutrophils % (auto) 60.4 %; Platelet Count 144 K/uL (130-400); RDW Coefficient of Variation 13.5 % (11.5-14.5); RDW Standard Deviation 43.8 fL (36.4-46.3); Red Blood Count 4.64 M/uL (4.20-5.40); White Blood Count 5.66 K/ul (4.8-10.8)
[2023-02-08 16:25] LABS: BUN Creatinine Ratio 26.2 (10-20); Calcium 8.6 mg/dl (8.6-10.3); Creatinine Clr Calc Pharmacy 63.6 ml/min; Est GFR (Non-African American) 86.2 ml/min; Potassium 4.1 mmol/L (3.5-5.1)
--- NOTE | 2023-02-08 16:53 | Pulmonary Consultation ---
Date of Consultation February 08, 2023 Assessment & Plan (1) Pneumothorax after biopsy: (2) COPD (chronic obstructive pulmonary disease): (3) Pulmonary nodule: Plan -- Left-sided pneumothorax S/p IR guided biopsy Pigtail catheter in place with good reexpansion of the lung No air leak appreciated on the chest tube, continue with -20 suction -- COPD with emphysema Supposed to be on Anoro at home -- Left lower lobe pulmonary nodule PET positive Status post biopsy 02/08/2023 Follow-up pathology Plan: Continue with -20 suction of the chest tube Repeat chest x-ray in the morning tomorrow Continue with pain and vent Case was discussed with RN at bedside All questions and queries of the daughter were answered in depth Please note the above document was generated using voice recognition software. It may contain grammatical, syntax or spelling errors.Any formal questions or concerns about the content, text or information contained within the body of this dictation should be directly addressed to the provider for clarification. History of Present Illness Attending Physician: Dung Bledsoe PA-C History of Present Illness 77-year-old female present to the hospital for CT-guided biopsy of the left lower lobe Past medical history: COPD, hypertension, dyslipidemia, coronary artery disease, diabetic nephropathy, GERD Patient had a complication of pneumothorax postprocedure. Chest tube was placed by IR. Patient was last seen by Dung Bledsoe PA-C on 01/09/2023, previous records and images personally reviewed She was admitted for chest tube management. Pulmonary consulted for the same At the time of examination patient had gotten Dilaudid. She was sleeping. Patient's daughter was also in the room She was not in any distress. Did complain of mild discomfort at the site of the pigtail catheter. No nausea or vomiting Has been afebrile Allergies Allergy/AdvReac Type Severity Reaction Status Date / Time amoxicillin Allergy Unknown hives, Verified 02/08/23 08:12 nausea cephalexin [From Keflex] Allergy Unknown Rash Verified 02/08/23 08:12 ciprofloxacin [From Cipro] Allergy Unknown Hives Verified 02/08/23 08:12 codeine Allergy Unknown hives, Verified 02/08/23 08:12 nausea (percocet is ok per pt) Iodinated Contrast Media Allergy Unknown HIVES Verified 02/08/23 08:12 nitrofurantoin Allergy Unknown shortness Verified 02/08/23 08:12 [From Macrobid] of breath Penicillins Allergy Unknown Rash Verified 02/08/23 08:12 trimethoprim Allergy Unknown Hives Verified 02/08/23 08:12 amlodipine AdvReac Unknown Dizziness Verified 02/08/23 08:12 blue dye AdvReac Unknown SUICIDAL Verified 02/08/23 08:12 THOUGHTS, HALLUCINATIONS duloxetine AdvReac Unknown high Verified 02/08/23 08:12 anxiety pollen extracts AdvReac Unknown cough and Verified 02/08/23 08:12 sinus drainage tramadol AdvReac Unknown SHAKINESS, Verified 02/08/23 08:12 NAUSEA/high anxiety chlorthalidone AdvReac Verified 02/08/23 08:12 Home Medications Medication Instructions Recorded Confirmed Type multivitamin 1 tab PO QAM #30 tabs 10/28/21 02/08/23 Rx losartan 50 mg tablet 50 mg PO BID #180 tabs 06/01/22 02/08/23 Rx metformin 1,000 mg tablet 500 mg PO TID 06/01/22 02/08/23 History blood sugar diagnostic (OneTouch #200 ea 07/12/22 01/11/23 Rx Verio test strips) ascorbic acid (vitamin C) 1,000 mg 1,000 mg PO QAM 08/03/22 02/08/23 History tablet,extended release aspirin 81 mg tablet,delayed 81 mg PO HS 08/03/22 02/08/23 History release cranberry 500 mg capsule 450 mg PO QAM 08/03/22 02/08/23 History gabapentin 400 mg capsule 400 - 800 mg PO BID 08/03/22 02/08/23 History omega 3-npw-uqj-fish oil 1,000 mg 1 cap PO QAM 08/03/22 02/08/23 History (120 mg-180 mg) capsule (Fish Oil) esomeprazole magnesium 40 mg 20 mg PO QDD 09/28/22 02/08/23 History capsule,delayed release albuterol sulfate 90 mcg/actuation 2 puff inhalation QID PRN 11/21/22 02/08/23 Rx aerosol inhaler shortness of breath or wheezing #8.5 grams alendronate 70 mg tablet 70 mg PO WK 12/15/22 02/08/23 History cholecalciferol (vitamin D3) 50 50 mcg PO QAM 12/15/22 02/08/23 History mcg (2,000 unit) capsule (Vitamin D3) fluticasone propionate 50 1 spray intranasal UD PRN 12/15/22 02/08/23 History mcg/actuation nasal Congestion spray,suspension (Flonase Allergy Relief) rosuvastatin 20 mg tablet 20 mg PO HS 12/15/22 02/08/23 History carvedilol 25 mg tablet 25 mg PO BID #180 tabs 02/06/23 02/08/23 Rx spironolactone 50 mg tablet 50 mg PO QAM #30 tabs 02/06/23 02/08/23 Rx terazosin 5 mg capsule 5 mg PO BID #90 caps 02/06/23 02/08/23 Rx Patient History Medical History Acid reflux CAD (coronary artery disease) Chronic obstructive pulmonary disease History of breast cancer X2 (21 YR AGO/HX RADIATION) MOST RECENT 8 YR AGO/DOUBLE MASTECTOMY WITH TRANFLAP: R limb restriction History of bronchitis S/P 2 WKS FOLLOWING BRONCHOSOPY...SOME COUGH REMAINS. History of colon polyps X3 JUL 2022...PUT CLIPS IN HX POLYPS...REASON FOR UPCOMING COLONOSCOPY History of high blood pressure WHILE CHECKING IN FOR COLONOSCOPY JUL 2022/REMAINED HIGH FOR SEVERAL DAYS. Hypertension Kidney cysts Limb alert care status R arm Low magnesium level DECEMBER 02 2022..[facility] ED VISIT Mild mitral valve regurgitation NO CARDS Pulmonary nodule UPCOMING CT FOR DECEMBER 28 2022 Renal artery stenosis HAD RECENT APT WITH DR. AHUJA/NEXT FOLLOW UP 2023 FOR ULTRASOUND Syncope and collapse DECEMBER 02 2022... [facility] ED VISIT ...UNKNOWN ETIOLOGY / ? R/T TROUBLE WITH A MEDICATION Type 2 diabetes, controlled, with neuropathy NIDDM Unique anesthetic considerations present on preoperative anesthesia assessment SCARED OF ANESTHESIA / NO HX PROBLEMS WITH IT PREVIOUSLY ; MOST RECENT PROCEDURE IN SEPTEMBER 2022- TROUBLE COMING OUT OF. Surgical History History of bilateral mastectomy WITH TRANFLAP History of bronchoscopy SEPTEMBER 2022 History of colonoscopy most recent 12/2022 History of tooth extraction Hx of cataract surgery RT/LEFT Hx of hysterectomy Family History Mother Myocardial infarction Family history of diabetes mellitus Brother Lung cancer Denies family history of Ovarian cancer Prostate cancer Breast cancer Colorectal cancer Social History Smoking Status: Former smoker Tobacco Type: Cigarettes Age Started Using Tobacco: 16; Age Quit Using Tobacco: 47; packs per day: 66; Cigarettes Per Day: 10 YEARS AGO>IN THE PAST YEAR, I HAVE HAD 20 CIG WITHIN THE LAST YEAR; Smoking End Date: 10 years ago; Second Hand Exposure: No; Do You Dip or Chew Tobacco: No; Tobacco Cessation Education Requested by Patient: No Hx Alcohol Use: No Hx Substance Use: No Preferred Language: Belarusian Communication Ability: Effective Visual Impairment: No Limitations Hearing Ability: Normal Digital Cartographer Required: No Beliefs That Will Affect Care: None marital status: / Current Living Situation: Alone current occupational status: employed and retired 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, 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 [employer] Other Information That Helps Us Care for You: No Feels Safe at Home: Yes Safety Concerns: Feels Safe At This Time Childhood Exposure to Second-Hand Smoke: Yes Diet: regular caffeine: No Dental Care, Regularly: Yes Physical Activity Frequency: 3-4 Times per Week Seatbelt Use: always Sunscreen Use: Yes Assistive Devices: Denture - Upper and Glasses Review of Systems Review of Systems: All systems reviewed & are unremarkable except as noted in HPI & below Physical Exam Physical Exam: Constitutional: No acute distress HEENT: EOMI, PERRLA Respiratory system: Decreased air entry bilaterally, no wheeze, no rhonchi, mild crackles bilateral lower lobes CVS: S1-S2 positive, no murmurs or gallops Abdomen: Soft, nontender, nondistended, positive bowel sounds x4 Extremities: +2 pulses bilaterally radialis/ dorsalis pedis, no cyanosis, no edema Neuro: Somnolent Psych: Normal mood and affect G/U: No Pichardo Skin: no rashes, warm and dry Lymphatic: no cervical or axillary lymphadenopathy Results & Data Results & Data Vital Signs (Past 12 Hours) Vital Signs Temp Pulse Resp BP Pulse Ox O2 Del Method O2 Flow Rate 02/08/23 13:15 60 20 134/44 L 97 Nasal Cannula 2 02/08/23 13:00 61 14 127/54 L 98 Nasal Cannula 2 02/08/23 12:45 59 L 20 142/52 H 96 Nasal Cannula 2 02/08/23 12:30 60 18 156/53 H 98 Nasal Cannula 2 02/08/23 12:20 36.5 C 67 15 177/63 H 95 Nasal Cannula 3 02/08/23 12:10 60 15 146/49 H 98 Nasal Cannula 3 02/08/23 12:00 61 15 147/52 H 98 Nasal Cannula 3 02/08/23 11:50 59 L 15 147/51 H 98 Nasal Cannula 3 02/08/23 11:40 58 L 17 149/52 H 98 Nasal Cannula 3 02/08/23 11:30 60 13 169/63 H 98 Nasal Cannula 3 02/08/23 11:20 55 L 13 195/64 H 98 Nasal Cannula 3 02/08/23 11:10 57 L 21 190/66 H 98 Nasal Cannula 3 02/08/23 11:00 57 L 16 196/61 H 98 Nasal Cannula 3 02/08/23 10:55 59 L 15 204/66 H 99 Nasal Cannula 3 02/08/23 10:45 64 20 186/60 H 95 Nasal Cannula 3 02/08/23 10:35 66 13 181/70 H 100 Oxymask 9 02/08/23 10:25 59 L 15 144/53 H 100 Oxymask 9 02/08/23 10:16 36.0 C L 62 16 130/44 L 100 Oxymask 9 02/08/23 08:45 56 L 20 96 Room Air Laboratory Results 02/08/23 15:48 02/08/23 15:48 PG Care Time/CCT Total # of Minutes Spent Total Time Spent with Patient: Total time spent is greater than 50% in coordination of care (as documented) at patient's floor/unit and/or counseling patient: Coding Level of Care Code 57822 INT INP/OBS CARE MIN Diagnoses Pneumothorax after biopsy J95.811 COPD (chronic obstructive pulmonary disease) J44.9 Pulmonary nodule R91.1
[2023-02-08] MEDS: GABAPENTIN 400 MG CAP PO SCH (17:08)
[2023-02-08] MEDS: carvediloL 25 MG TAB PO SCH (17:08)
[2023-02-08] MEDS: ROSUVASTATIN CALCIUM 20 MG TAB PO SCH (20:51)
[2023-02-08] MEDS: TERAZOSIN HCL 5 MG CAP PO SCH (20:52)
[2023-02-08] MEDS: ASPIRIN 81 MG ECTAB PO SCH (20:52)
[2023-02-08] MEDS: GABAPENTIN 800 MG TAB PO SCH (20:52)
[2023-02-08] MEDS: LOSARTAN POTASSIUM 50 MG TAB PO SCH (20:52)
[2023-02-09] MEDS: ACETAMINOPHEN 325 MG TAB PO PRN ×4 (02:43→22:22)
[2023-02-09] MEDS: HYDROmorphone INJ 0.5 MG/0.5 ML SYR IV PRN ×3 (03:00→18:54)
[2023-02-09 06:17] LABS: Basophils # (auto) 0.05 K/uL (0.00-0.20); Basophils % (auto) 0.7 %; Eosinophils # (auto) 0.18 K/uL (0.00-0.50); Eosinophils % (auto) 2.4 %; Hematocrit (blood only) 39.7 % (37.0-47.0); Hemoglobin 12.9 g/dl (12.0-16.0); Immature Granulocytes # (auto) 0.02 K/uL (0.01-0.20); Immature Granulocytes % (auto) 0.3 %; Lymphocytes # (auto) 1.55 K/uL (1.20-3.40); Lymphocytes % (auto) 21.1 %; Mean Corpuscular Hemoglobin 29.3 pg (25.0-34.0); Mean Corpuscular Hgb Conc 32.5 g/dL (32.0-36.0); Mean Corpuscular Volume 90.2 fL (80.0-100.0); Mean Platelet Volume 11.9 fL (9.4-12.4); Monocytes # (auto) 0.56 K/uL (0.11-0.59); Monocytes % (auto) 7.6 %; Neutrophils % (auto) 67.9 %; Platelet Count 123 K/uL (130-400); RDW Coefficient of Variation 13.5 % (11.5-14.5); RDW Standard Deviation 45.2 fL (36.4-46.3); White Blood Count 7.36 K/ul (4.8-10.8)
[2023-02-09 06:36] LABS: Calcium 8.3 mg/dl (8.6-10.3); Creatinine Clr Calc Pharmacy 40.8 ml/min; Est GFR (African American) 63.4 ml/min; Est GFR (Non-African American) 54.7 ml/min
[2023-02-09 07:40] LABS: Estimated Average Glucose 166 mg/dl; Hemoglobin A1C 7.4 % (4.5-5.6)
--- NOTE | 2023-02-09 07:57 | Pulmonology Progress Note ---
Date of Service February 09, 2023 Assessment & Plan (1) Pneumothorax after biopsy: (2) COPD (chronic obstructive pulmonary disease): (3) Pulmonary nodule: Plan -- Left-sided pneumothorax S/p IR guided biopsy Pigtail catheter in place with good reexpansion of the lung No air leak appreciated on the chest tube, continue with water seal. Repeat CXR at Noon today. -- COPD with emphysema Supposed to be on Anoro at home. -- Left lower lobe pulmonary nodule PET positive Status post biopsy 02/08/2023 Follow-up pathology Please note the above document was generated using voice recognition software. It may contain grammatical, syntax or spelling errors.Any formal questions or concerns about the content, text or information contained within the body of this dictation should be directly addressed to the provider for clarification. Admission and Anticipated Discharge Date Admission Date: February 08, 2023 Supervising Physician Co-Signing Physician Notes I saw and evaluated the patient with Dung Bledsoe PA-C and agree with findings and plan as documented in the note. Patient seen and examined at bedside. No acute distress, notable since overnight She does complain of discomfort at the site of the chest tube No shortness of breath No headache, no nausea, no vomiting Fair appetite Constitutional: No acute distress HEENT: EOMI, PERRLA Respiratory system: Decreased air entry bilaterally, no wheeze, no rhonchi, mild crackles bilateral lower lobes CVS: S1-S2 positive, no murmurs or gallops Abdomen: Soft, nontender, nondistended, positive bowel sounds x4 Extremities: +2 pulses bilaterally radialis/ dorsalis pedis, no cyanosis, no edema Neuro: Alert oriented to self place and time Psych: Normal mood and affect G/U: Positive Pichardo Plan: Chest x-ray from today does not show significant worsening compared to yesterday. Small apical pneumothorax persist We will put the chest tube on waterseal for the whole day. Repeat chest x-ray around noon to see if there is any worsening of the pneumothorax If there is no worsening in the afternoon then tomorrow we will Combitube in the morning and repeat x-ray at noon. Please note the above document was generated using voice recognition software. It may contain grammatical, syntax or spelling errors.Any formal questions or concerns about the content, text or information contained within the body of this dictation should be directly addressed to the provider for clarification. Subjective Patient seen and evaluated at bedside. She reports that she is having pain at the site of insertion. She has had no issues with her breathing. She is frustrated with being in the hospital, but offers no complaints otherwise. Review of Systems Review of Systems: Unchanged from admission. Physical Exam Physical Exam: VITAL SIGNS - Vital signs and nursing notes were reviewed. GENERAL - 77-year-old female appearing her stated age who is in no acute distress. Communicates well with provider and answers questions appropriately. LUNGS - Chest wall evaluation demonstrates LEFT sided chest tube in place. No air leak. Auscultation reveals coarse breath sounds throughout. CARDIAC - RRR with S1/S2. No murmur, rubs, or gallops appreciated. PSYCH - A&Ox3 and cooperates fully with examiner. Pt is very pleasant and interacts well with examiner. Skin: no rashes, warm and dry Lymphatic: no cervical or axillary lymphadenopathy Results & Data Results & Data Vital Signs (Past 12 Hours) Vital Signs Temp Pulse Pulse Resp BP Pulse Ox O2 Del Method 02/09/23 07:33 57 L 02/09/23 03:32 36.8 C 59 L 18 126/55 L 98 Nasal Cannula 02/08/23 22:04 59 L 02/09/23 02:57 61 18 96 Nasal Cannula 02/08/23 23:16 37.3 C 62 18 119/55 L 93 Room Air 02/08/23 20:45 58 L 18 148/66 H 95 Nasal Cannula O2 Flow Rate 02/09/23 07:33 02/09/23 03:32 2 02/08/23 22:04 02/09/23 02:57 2 02/08/23 23:16 02/08/23 20:45 1 PG Care Time/CCT Total # of Minutes Spent Total Time Spent with Patient: Total time spent is greater than 50% in coordination of care (as documented) at patient's floor/unit and/or counseling patient: Coding Level of Care Code 50508 SUB INP/OBS CARE 2/35MIN Diagnoses Pneumothorax after biopsy J95.811 COPD (chronic obstructive pulmonary disease) J44.9 Pulmonary nodule R91.1
--- NOTE | 2023-02-09 08:01 | XRay Report ---
XR chest 1V portable CLINICAL HISTORY: f/u PTX,chest tube COMPARISON STUDY: Chest CT December 28, 2022. Chest radiograph February 08, 2023. CT-guided biopsy of left lower lobe lesion on February 08, 2023. FINDINGS: Left basilar pleural pigtail catheter remains in place. A small left apical pneumothorax wi th pleural separation of 6 mm is similar to prior chest radiograph. No evidence for pulmonary edema. No consolidation to suggest pneumonia. No left lower lobe lesion is not well-visualized by radiograph y. IMPRESSION: Left basilar pleural catheter in place. No significant change in a small left apical pne umothorax. ACT 112: Negative or not required by law. Electronically signed by: Doron Stanley M.D. 02/09/2023 8:00 AM
[2023-02-09] MEDS: INSULIN ASPART PER UNIT CHARGE SC SCH ×4 (08:22→20:43)
[2023-02-09] MEDS: UMECLIDINIUM BROMIDE 62.5MCG/BLISTER 7 PUFFS/INHALER INH SCH (08:49)
[2023-02-09] MEDS: TERAZOSIN HCL 5 MG CAP PO SCH ×2 (08:50→20:38)
[2023-02-09] MEDS: CHOLECALCIFEROL 1,000 UNITS 25 MCG TAB PO SCH (08:50)
[2023-02-09] MEDS: LOSARTAN POTASSIUM 50 MG TAB PO SCH ×2 (08:50→20:38)
[2023-02-09] MEDS: SPIRONOLACTONE 25 MG TAB PO SCH (08:50)
[2023-02-09] MEDS: MULTIVITAMIN TAB PO SCH (08:51)
[2023-02-09] MEDS: GABAPENTIN 400 MG CAP PO SCH ×2 (08:51→16:12)
[2023-02-09] MEDS: PANTOprazole 40 MG TAB PO SCH (08:51)
[2023-02-09] MEDS: ASCORBIC ACID 500 MG TAB PO SCH (08:53)
[2023-02-09] MEDS: carvediloL 25 MG TAB PO SCH ×2 (08:53→16:12)
[2023-02-09] MEDS ORDERED: GABAPENTIN 400 MG CAP PO SCH (09:00)
[2023-02-09] MEDS ORDERED: SPIRONOLACTONE 25 MG TAB PO SCH (09:00)
--- NOTE | 2023-02-09 12:37 | XRay Report ---
XR chest 1V portable CLINICAL HISTORY: f/u on waterseal COMPARISON STUDY: Chest radiograph performed earlier today. FINDINGS: Left basilar pleural catheter remains in place. A small left apical pneumothorax with pleur al separation of 5 mm is similar to slightly decreased in size since prior chest radiograph. No right pneumothorax is present. The appearance of the chest is unchanged. IMPRESSION: Stable to slight decrease in size of a small left apical pneumothorax. Left basilar pleur al catheter in place. ACT 112: Negative or not required by law. Electronically signed by: Doron Stanley M.D. 02/09/2023 12:35 PM
--- NOTE | 2023-02-09 17:33 | Hospitalist Progress Note ---
Date of Service February 09, 2023 Assessment & Plan (1) Pneumothorax after biopsy: Plan: occurred iatrogenically during procedure for left lung nodule CT guided biopsy with IR chest tube placed by IR and f/u CXR with almost complete resolution, with 7mm PTX Pathology pending Pulmonology consulted for chest tube management Pigtail catheter in place with good expansion of lung, hooked to water seal NO AIR LEAK on exam 02/09 in the evening Pain control - Tylenol/Dilaudid Continue incentive spirometer, supplemental O2 to maintain sats CXR in AM Consult to be placed for PT, ensure no needs at home (2) Pulmonary nodule: Plan: LLL 1.7cm nodule. Had EBUS with biopsy in 09/2022 without enough tissue for diagnosis; then had repeat chest CT 12/2022 which showed stable to increased size and now with IR guided CT biopsy w/ samples taken await Path consulted PULM and needs f/u when Path results available with adrenal nodule present and stable for long time -- followed by Endocrinology and started on spironolactone for possible hyperaldosteronism PET scan earlier this year without significant uptake in nodule but may be slow growing malignancy CT Chest also with mediastinal and right supraclavicular LISSET needs to be followed does have a h/o breast CA with recurrence in 2012, treated with mastectomy and radiation F/u outpatient (3) Hypertension: Plan: has history of accelerated HTN and borderline hyperaldosteronism, follows with HTN clinic now on spironolactone-was to increase to 50mg daily from 25mg but she is hesitant to do so because she is already urinating so frequently-keep at 25mg for now and increase if willing to try continue COreg 25mg bid,losartan 50mg po bid, terazosin 5mg po bid follow BPs-normal for now (4) COPD (chronic obstructive pulmonary disease): Plan: continue LAMA/LABA-sub with Anoro Ellipta on formulary for now she reports running out of Stiolto sample at home and her insurance won't cover it-needs new Rx for Anoro on discharge which she was told is covered continue albuterol prn (5) Hyperlipidemia: Plan: continue statin, hold fish oil for now (6) CAD (coronary artery disease): Plan: seen on CT imaging, no cath done continue ASA, statin, Coreg (7) Diabetic peripheral neuropathy: Plan: Continue home gabapentin (8) Type 2 diabetes mellitus: Plan: Hold home metformin while inpatient and use Novolog supplemental insulin as needed check A1C in AM --> 7.3 from prior 7.3 AHA/DM diet (9) Renal artery stenosis: Plan: on LEFT, not severe enough for intervention, follows with Vascular (10) Osteopenia: Plan: continue Fosamax at home, vit D (11) GERD (gastroesophageal reflux disease): Plan: continue PPI no acute issues Plan DVT prophylaxis-SCDs continued inpatient stay, CXR in am PT consults hopeful discharge tomorrow Admission and Anticipated Discharge Date Admission Date: February 08, 2023 Supervising Physician Co-Signing Physician Notes the patient was not seen by me. The chart was reviewed. Case discussed with ALLAN Keenan. Agree with assessment and plan. Subjective Eval this evening, sitting up in the chair eating dinner. Having some pain, reports RN to give her something after she is done eating. She did not anticipate having chest tube/discomfort and was hoping it would be in/out procedure. Discussed does not appear to have any air leak at present, even with cough. Hopefully will be able to repeat CXR in AM and discharge. She notes she is alone when she goes home and wants to make sure everything is taken care of. Will consult PT for tomorrow to ensure no needs, she feels weak sitting in bed all day -also can consider home health if needed pending repeat exams. Pain at site of chest tube but otherwise no chest pain, breathing stable on room air and utilizing incentive spirometer. No abdominal pain/nausea/vomiting. Questions/concerns addressed at this time. Physical Exam Physical Exam: General: WD chronically ill appearing female sitting up in chair eating dinner, NAD but mildly uncomfortable with cough HEENT: head normocephalic, atraumatic, mmm, trachea midline Resp: chest wall with LEFT sided chest tube, hooked to water seal, NO AIRLEAK appreciated, coarse breath sounds bilaterally CV: RRR, no significant m/r/g, no pitting edema/calf tenderness GI: +BS, soft/NT Psych: AOx3, cooperative with exam Results & Data Results & Data Vital Signs (Past 12 Hours) Vital Signs Temp Pulse Pulse Resp BP Pulse Ox O2 Del Method 02/09/23 16:00 61 02/09/23 16:10 36.8 C 68 18 121/53 L 92 Room Air 02/09/23 10:54 36.8 C 58 L 18 119/45 L 96 Nasal Cannula 02/09/23 09:52 Nasal Cannula 02/09/23 09:50 95 Nasal Cannula 02/09/23 09:50 85 L Room Air 02/09/23 07:37 36.7 C 57 L 18 139/71 96 Nasal Cannula 02/09/23 07:33 57 L O2 Flow Rate 02/09/23 16:00 02/09/23 16:10 02/09/23 10:54 2 02/09/23 09:52 2 02/09/23 09:50 2 02/09/23 09:50 02/09/23 07:37 1 02/09/23 07:33 Laboratory Results 02/09/23 02/09/23 02/09/23 Range/Units 16:58 11:51 08:02 WBC (4.8-10.8) K/ul RBC (4.20-5.40) M/uL Hgb (12.0-16.0) g/dl Hct (37.0-47.0) % MCV (80.0-100.0) fL MCH (25.0-34.0) pg MCHC (32.0-36.0) g/dL RDW Std Deviation (36.4-46.3) fL RDW Coeff of John (11.5-14.5) % Plt Count (130-400) K/uL MPV (9.4-12.4) fL Immature Gran % (Auto) % Neut % (Auto) % Lymph % (Auto) % Parke % (Auto) % Eos % (Auto) % Baso % (Auto) % Neut # (Auto) (1.40-6.50) K/uL Lymph # (Auto) (1.20-3.40) K/uL Parke # (Auto) (0.11-0.59) K/uL Eos # (Auto) (0.00-0.50) K/uL Baso # (Auto) (0.00-0.20) K/uL Immature Gran # (Auto) (0.01-0.20) K/uL Sodium (136-145) mmol/L Potassium (3.5-5.1) mmol/L Chloride (98-107) mmol/L Carbon Dioxide (21-32) mmol/L Anion Gap (3-11) BUN (6-23) mg/dl Creatinine (0.6-1.2) mg/dl Est Cr Clr Drug Dosing ml/min Est GFR ( Amer) ml/min Est GFR (Non-Af Amer) ml/min BUN/Creatinine Ratio (10-20) Glucose (70-99(Fasting)) mg/dl POC Glucose 114 H 254 H 125 H (70-99) mg/dl Estimat Average Glucose mg/dl Hemoglobin A1c (4.5-5.6) % Calcium (8.6-10.3) mg/dl 02/09/23 02/09/23 02/09/23 Range/Units 05:22 05:22 05:22 WBC 7.36 (4.8-10.8) K/ul RBC 4.40 (4.20-5.40) M/uL Hgb 12.9 (12.0-16.0) g/dl Hct 39.7 (37.0-47.0) % MCV 90.2 (80.0-100.0) fL MCH 29.3 (25.0-34.0) pg MCHC 32.5 (32.0-36.0) g/dL RDW Std Deviation 45.2 (36.4-46.3) fL RDW Coeff of John 13.5 (11.5-14.5) % Plt Count 123 L (130-400) K/uL MPV 11.9 (9.4-12.4) fL Immature Gran % (Auto) 0.3 % Neut % (Auto) 67.9 % Lymph % (Auto) 21.1 % Parke % (Auto) 7.6 % Eos % (Auto) 2.4 % Baso % (Auto) 0.7 % Neut # (Auto) 5.00 (1.40-6.50) K/uL Lymph # (Auto) 1.55 (1.20-3.40) K/uL Parke # (Auto) 0.56 (0.11-0.59) K/uL Eos # (Auto) 0.18 (0.00-0.50) K/uL Baso # (Auto) 0.05 (0.00-0.20) K/uL Immature Gran # (Auto) 0.02 (0.01-0.20) K/uL Sodium 142 (136-145) mmol/L Potassium 4.0 (3.5-5.1) mmol/L Chloride 108 H (98-107) mmol/L Carbon Dioxide 28 (21-32) mmol/L Anion Gap 6 (3-11) BUN 22 (6-23) mg/dl Creatinine 1.00 D (0.6-1.2) mg/dl Est Cr Clr Drug Dosing 40.8 ml/min Est GFR ( Amer) 63.4 ml/min Est GFR (Non-Af Amer) 54.7 ml/min BUN/Creatinine Ratio 22.0 H (10-20) Glucose 121 H (70-99(Fasting)) mg/dl POC Glucose (70-99) mg/dl Estimat Average Glucose 166 mg/dl Hemoglobin A1c 7.4 H (4.5-5.6) % Calcium 8.3 L (8.6-10.3) mg/dl 02/08/23 Range/Units 20:00 WBC (4.8-10.8) K/ul RBC (4.20-5.40) M/uL Hgb (12.0-16.0) g/dl Hct (37.0-47.0) % MCV (80.0-100.0) fL MCH (25.0-34.0) pg MCHC (32.0-36.0) g/dL RDW Std Deviation (36.4-46.3) fL RDW Coeff of John (11.5-14.5) % Plt Count (130-400) K/uL MPV (9.4-12.4) fL Immature Gran % (Auto) % Neut % (Auto) % Lymph % (Auto) % Parke % (Auto) % Eos % (Auto) % Baso % (Auto) % Neut # (Auto) (1.40-6.50) K/uL Lymph # (Auto) (1.20-3.40) K/uL Parke # (Auto) (0.11-0.59) K/uL Eos # (Auto) (0.00-0.50) K/uL Baso # (Auto) (0.00-0.20) K/uL Immature Gran # (Auto) (0.01-0.20) K/uL Sodium (136-145) mmol/L Potassium (3.5-5.1) mmol/L Chloride (98-107) mmol/L Carbon Dioxide (21-32) mmol/L Anion Gap (3-11) BUN (6-23) mg/dl Creatinine (0.6-1.2) mg/dl Est Cr Clr Drug Dosing ml/min Est GFR ( Amer) ml/min Est GFR (Non-Af Amer) ml/min BUN/Creatinine Ratio (10-20) Glucose (70-99(Fasting)) mg/dl POC Glucose 196 H (70-99) mg/dl Estimat Average Glucose mg/dl Hemoglobin A1c (4.5-5.6) % Calcium (8.6-10.3) mg/dl Diagnostic Findings Chest X-Ray 02/09/23 07:00 XR chest 1V portable CLINICAL HISTORY: f/u PTX,chest tube COMPARISON STUDY: Chest CT December 28, 2022. Chest radiograph February 08, 2023. CT- guided biopsy of left lower lobe lesion on February 08, 2023. FINDINGS: Left basilar pleural pigtail catheter remains in place. A small left apical pneumothorax with pleural separation of 6 mm is similar to prior chest radiograph. No evidence for pulmonary edema. No consolidation to suggest pneumonia. No left lower lobe lesion is not well-visualized by radiography. IMPRESSION: Left basilar pleural catheter in place. No significant change in a small left apical pneumothorax. ACT 112: Negative or not required by law. Electronically signed by: Doron Stanley M.D. 02/09/2023 8:00 AM Chest X-Ray 02/09/23 12:00 XR chest 1V portable CLINICAL HISTORY: f/u on waterseal COMPARISON STUDY: Chest radiograph performed earlier today. FINDINGS: Left basilar pleural catheter remains in place. A small left apical pneumothorax with pleural separation of 5 mm is similar to slightly decreased in size since prior chest radiograph. No right pneumothorax is present. The appearance of the chest is unchanged. IMPRESSION: Stable to slight decrease in size of a small left apical pneumothorax. Left basilar pleural catheter in place. ACT 112: Negative or not required by law. Electronically signed by: Doron Stanley M.D. 02/09/2023 12:35 PM PG Care Time/CCT Total # of Minutes Spent Total Time Spent with Patient: Total time spent is greater than 50% in coordination of care (as documented) at patient's floor/unit and/or counseling patient: Coding Level of Care Code 76963 SUB INP/OBS CARE 2MIN Diagnoses Pneumothorax after biopsy J95.811 Pulmonary nodule R91.1 Hypertension I10 COPD (chronic obstructive pulmonary disease) J44.9 Hyperlipidemia E78.5 CAD (coronary artery disease) I25.10 Diabetic peripheral neuropathy E11.42 Type 2 diabetes mellitus E11.9 Renal artery stenosis I70.1 Osteopenia M85.80 GERD (gastroesophageal reflux disease) K21.9
[2023-02-09] MEDS: ASPIRIN 81 MG ECTAB PO SCH (20:36)
[2023-02-09] MEDS: GABAPENTIN 800 MG TAB PO SCH (20:37)
[2023-02-09] MEDS: ROSUVASTATIN CALCIUM 20 MG TAB PO SCH (20:38)
[2023-02-10] MEDS: HYDROmorphone INJ 0.5 MG/0.5 ML SYR IV PRN (04:28)
[2023-02-10 05:09] LABS: Hematocrit (blood only) 39.2 % (37.0-47.0); Hemoglobin 13.1 g/dl (12.0-16.0); Mean Corpuscular Hemoglobin 29.8 pg (25.0-34.0); Mean Corpuscular Hgb Conc 33.4 g/dL (32.0-36.0); Mean Corpuscular Volume 89.1 fL (80.0-100.0); Mean Platelet Volume 12.1 fL (9.4-12.4); Platelet Count 126 K/uL (130-400); RDW Coefficient of Variation 13.4 % (11.5-14.5); RDW Standard Deviation 44.3 fL (36.4-46.3); White Blood Count 6.37 K/ul (4.8-10.8)
[2023-02-10 05:26] LABS: BUN Creatinine Ratio 35.2 (10-20); Calcium 8.3 mg/dl (8.6-10.3); Creatinine Clr Calc Pharmacy 46.4 ml/min; Est GFR (Non-African American) 63.8 ml/min; Magnesium 1.9 mg/dl (1.7-2.4); Potassium 4.1 mmol/L (3.5-5.1)
--- NOTE | 2023-02-10 07:48 | XRay Report ---
XR chest 1V portable CLINICAL HISTORY: left PNX COMPARISON STUDY: Chest radiograph February 09, 2023 at 12:01 PM. FINDINGS: Left basilar pleural catheter remains in place. No left pneumothorax is identified. Cardiom ediastinal silhouette is stable. No evidence for pulmonary edema. IMPRESSION: Left basilar pleural catheter in place. No pneumothorax. ACT 112: Negative or not required by law. Electronically signed by: Doron Stanley M.D. 02/10/2023 7:46 AM
[2023-02-10] MEDS: INSULIN ASPART PER UNIT CHARGE SC SCH ×3 (09:17→17:33)
[2023-02-10] MEDS: LOSARTAN POTASSIUM 50 MG TAB PO SCH (09:18)
[2023-02-10] MEDS: TERAZOSIN HCL 5 MG CAP PO SCH (09:18)
[2023-02-10] MEDS: carvediloL 25 MG TAB PO SCH ×2 (09:18→17:33)
[2023-02-10] MEDS: PANTOprazole 40 MG TAB PO SCH (09:18)
[2023-02-10] MEDS: ASCORBIC ACID 500 MG TAB PO SCH (09:18)
[2023-02-10] MEDS: MULTIVITAMIN TAB PO SCH (09:18)
[2023-02-10] MEDS: CHOLECALCIFEROL 1,000 UNITS 25 MCG TAB PO SCH (09:18)
[2023-02-10] MEDS: SPIRONOLACTONE 25 MG TAB PO SCH (09:18)
[2023-02-10] MEDS: UMECLIDINIUM BROMIDE 62.5MCG/BLISTER 7 PUFFS/INHALER INH SCH (09:19)
[2023-02-10] MEDS: GABAPENTIN 400 MG CAP PO SCH ×2 (09:19→17:32)
--- NOTE | 2023-02-10 11:58 | Pulmonology Progress Note ---
Date of Service February 10, 2023 Assessment & Plan (1) Pneumothorax after biopsy: (2) COPD (chronic obstructive pulmonary disease): (3) Pulmonary nodule: Plan -- Left-sided pneumothorax S/p IR guided biopsy Pigtail catheter in place with good reexpansion of the lung No air leak appreciated on the chest tube, continue with water seal. Repeat CXR at Noon today. -- COPD with emphysema Supposed to be on Anoro at home. -- Left lower lobe pulmonary nodule PET positive Status post biopsy 02/08/2023 Follow-up pathology Plan: Chest x-ray from today does not show any clear signs of pneumothorax We will clamp the tube today and repeat a chest x-ray in 4 hours. If there is no pneumothorax on the repeat chest x-ray we will remove the chest tube. Case was discussed with RN Please note the above document was generated using voice recognition software. It may contain grammatical, syntax or spelling errors.Any formal questions or concerns about the content, text or information contained within the body of this dictation should be directly addressed to the provider for clarification. Admission and Anticipated Discharge Date Admission Date: February 08, 2023 Subjective Patient seen and examined at bedside. No acute distress, noted to his overnight Still complains of mild discomfort at the site of the chest tube. No nausea vomiting Fair appetite Denies any shortness of breath Asking when she can go home Review of Systems Review of Systems: All systems reviewed & are unremarkable except as noted in Subjective Physical Exam Physical Exam: Constitutional: No acute distress HEENT: EOMI, PERRLA Respiratory system: Decreased air entry bilaterally, no wheeze, no rhonchi, mild crackles bilateral lower lobes CVS: S1-S2 positive, Positive 2 out of 6 systolic murmur appreciated best at aorta Abdomen: Soft, nontender, nondistended, positive bowel sounds x4 Extremities: +2 pulses bilaterally radialis/ dorsalis pedis, no cyanosis, no edema Neuro: Somnolent Psych: Normal mood and affect G/U: No Pichardo Skin: no rashes, warm and dry Lymphatic: no cervical or axillary lymphadenopathy Results & Data Results & Data Vital Signs (Past 12 Hours) Vital Signs Temp Pulse Pulse Resp BP Pulse Ox O2 Del Method 02/10/23 08:00 Room Air 02/10/23 08:00 58 L 02/10/23 08:12 36.7 C 60 21 169/68 H 98 Nasal Cannula 02/10/23 04:53 36.6 C 56 L 18 162/60 H 96 Room Air O2 Flow Rate 02/10/23 08:00 02/10/23 08:00 02/10/23 08:12 2 02/10/23 04:53 2 Laboratory Results 02/10/23 04:35 02/10/23 04:35 PG Care Time/CCT Total # of Minutes Spent Total Time Spent with Patient: Total time spent is greater than 50% in coordination of care (as documented) at patient's floor/unit and/or counseling patient: Coding Level of Care Code 87476 SUB INP/OBS CARE 2MIN Diagnoses Pneumothorax after biopsy J95.811 COPD (chronic obstructive pulmonary disease) J44.9 Pulmonary nodule R91.1
--- NOTE | 2023-02-10 14:22 | Hospitalist Progress Note ---
Date of Service February 10, 2023 Assessment & Plan (1) Pneumothorax after biopsy: Plan: occurred iatrogenically during procedure for left lung nodule CT guided biopsy with IR. Pigtail chest tube placed by IR and f/u CXR this morning, February 10 reveals complete resolution of the pneumothorax. The left pigtail catheter has been clamped by pulmonology and another portable chest x-ray will be obtained later today. If this is also negative, then the catheter will be removed and she will be discharged home. Pathology report is negative for malignancy (2) Pulmonary nodule: Plan: LLL 1.7cm nodule. Had EBUS with biopsy in 09/2022 without enough tissue for diagnosis; then had repeat chest CT 12/2022 which showed stable to increased size and now with IR guided CT biopsy w/ samples taken. Pathology remains negative. She had a previous negative PET CT scan also. She states she is not going to [facility] [place] [place] any more diagnostic testing at this time. (3) Hypertension: Plan: Stable. Continue current medical management (4) COPD (chronic obstructive pulmonary disease): Plan: Stable. Continue current medical management (5) Hyperlipidemia: Plan: Stable. Continue statin and fish oil (6) CAD (coronary artery disease): Plan: Stable. Continue current medical management (7) Diabetic peripheral neuropathy: Plan: Stable. Continue home gabapentin (8) Type 2 diabetes mellitus: Plan: Hold home metformin while inpatient. ADA diet. Sliding scale coverage. (9) Renal artery stenosis: Plan: on LEFT. Not severe enough for intervention. Outpatient surveillance and management (10) Osteopenia: Plan: continue Fosamax and vit D (11) GERD (gastroesophageal reflux disease): Plan: Stable. Continue PP Plan Hopefully home later today, February 10, if chest x-ray remains negative with left pigtail catheter clamped which will subsequently be removed Admission and Anticipated Discharge Date Admission Date: February 08, 2023 Subjective Alert and oriented. The left pigtail catheter has been clamped off and she is awaiting follow-up chest x-ray later today. The chest x-ray from this morning reveals complete resolution of the small left apical pneumothorax. A follow-up portable chest x-ray remains negative with the pigtail catheter clamped, it probably will be removed by the pulmonary medicine team and she will be discharged home. Pathology report is negative for malignancy Review of Systems Review of Systems: Constitutional-no fever or chills ENT-no blurred vision, no double vision, no epistaxis, no sore throat Respiratory-no cough, no wheezing, no shortness of breath Cardiac-no palpitations, no chest pain, no syncope GI-no nausea, vomiting, diarrhea, melena, hematochezia -no urinary retention, no urinary incontinence, no dysuria, no hematuria Musculoskeletal-no joint pain, no muscle tenderness Skin-no bruising, no rashes, no pruritus Neuro-no isolated weakness, no paresthesia, no weakness Psych-no depression, no anxiety Physical Exam 2 Physical Exam: General-alert and oriented x3, no fevers, no chills HEENT-head atraumatic and normocephalic, pupils equal and reactive to light, extraocular muscles intact Neck-no lymphadenopathy or thyromegaly, trachea midline Chest-diminished breath sounds bilaterally. No rales, wheezing, or rhonchi Cardiac-regular rate and rhythm, normal S1 and S2 Abdomen-normal bowel sounds, nontender, no hepatosplenomegaly Extremities-no cyanosis, clubbing, or edema Neuro-cranial nerves II through XII intact, motor and sensory function within normal limits, strength symmetrical , no focal deficits Psych-normal affect, normal mood Results & Data Results & Data Vital Signs (Past 12 Hours) Vital Signs Temp Pulse Pulse Resp BP Pulse Ox O2 Del Method 02/10/23 11:58 36.9 C 57 L 19 119/62 92 Nasal Cannula 02/10/23 08:00 Room Air 02/10/23 08:00 58 L 02/10/23 08:12 36.7 C 60 21 169/68 H 98 Nasal Cannula 02/10/23 04:53 36.6 C 56 L 18 162/60 H 96 Room Air O2 Flow Rate 02/10/23 11:58 1 02/10/23 08:00 02/10/23 08:00 02/10/23 08:12 2 02/10/23 04:53 2 Laboratory Results 02/10/23 04:35 02/10/23 04:35 PG Care Time/CCT Total # of Minutes Spent Total Time Spent with Patient: Total time spent is greater than 50% in coordination of care (as documented) at patient's floor/unit and/or counseling patient: Coding Level of Care Code 74278 SUB INP/OBS CARE MIN Diagnoses Pneumothorax after biopsy J95.811 Pulmonary nodule R91.1 Hypertension I10 COPD (chronic obstructive pulmonary disease) J44.9 Hyperlipidemia E78.5 CAD (coronary artery disease) I25.10 Diabetic peripheral neuropathy E11.42 Type 2 diabetes mellitus E11.9 Renal artery stenosis I70.1 Osteopenia M85.80 GERD (gastroesophageal reflux disease) K21.9
--- NOTE | 2023-02-10 14:24 | Discharge Summary ---
Date of Service February 10, 2023 Admission HPI Per Admitting Provider This pt is a 77 yo female with a h/o COPD, HTN, Left DUSTY, GERD, breast CA s/p bilat mastectomy, DMII with neuropathy, osteoporosis who had a CT guided lung nodule biopsy today with IR and had an iatrogenic pneumothorax, moderate in size. A chest tube was placed by IR immediately afterwards and f/u CXR shows almost complete resolution of the PTX. I saw her in the PACU and she was still drowsy from anesthesia and pain medicine but reported left rib pain at site of chest tube as well as a mild headache she actually had prior to the procedure today. She reports she was up all night long urinating due to her water pill and also due to anxiety over having the procedure today. Denies any SOB over her usual, no nausea. Last BM was thi AM before the procedure. She took her BPs meds this AM except for the aldactone and losartan. She will be admitted for PTX and chest tube management. Principal Diagnosis Small left apical pneumothorax after left lung biopsy Discharge Exam General-alert and oriented x3, no fevers, no chills HEENT-head atraumatic and normocephalic, pupils equal and reactive to light, extraocular muscles intact Neck-no lymphadenopathy or thyromegaly, trachea midline Chest-diminished breath sounds bilaterally. No rales, wheezing, or rhonchi Cardiac-regular rate and rhythm, normal S1 and S2 Abdomen-normal bowel sounds, nontender, no hepatosplenomegaly Extremities-no cyanosis, clubbing, or edema Neuro-cranial nerves II through XII intact, motor and sensory function within normal limits, strength symmetrical , no focal deficits Psych-normal affect, normal mood Discharge Data Allergies Allergy/AdvReac Type Severity Reaction Status Date / Time amoxicillin Allergy Unknown hives, Verified 02/08/23 08:12 nausea cephalexin [From Keflex] Allergy Unknown Rash Verified 02/08/23 08:12 ciprofloxacin [From Cipro] Allergy Unknown Hives Verified 02/08/23 08:12 codeine Allergy Unknown hives, Verified 02/08/23 08:12 nausea (percocet is ok per pt) Iodinated Contrast Media Allergy Unknown HIVES Verified 02/08/23 08:12 nitrofurantoin Allergy Unknown shortness Verified 02/08/23 08:12 [From Macrobid] of breath Penicillins Allergy Unknown Rash Verified 02/08/23 08:12 trimethoprim Allergy Unknown Hives Verified 02/08/23 08:12 amlodipine AdvReac Unknown Dizziness Verified 02/08/23 08:12 blue dye AdvReac Unknown SUICIDAL Verified 02/08/23 08:12 THOUGHTS, HALLUCINATIONS duloxetine AdvReac Unknown high Verified 02/08/23 08:12 anxiety pollen extracts AdvReac Unknown cough and Verified 02/08/23 08:12 sinus drainage tramadol AdvReac Unknown SHAKINESS, Verified 02/08/23 08:12 NAUSEA/high anxiety chlorthalidone AdvReac Verified 02/08/23 08:12 Consultations 02/08/23 13:21 Consult Pulmonology Routine Procedures Performed Operation Date: 02/08/23 09:00 Actual Procedures p Biopsy Lung CT Scan Anesthesia Sedation - Dillan Peters PA-C Ordered Studies 02/08/23 08:00 IR biopsy lung LT CT Routine 02/08/23 11:49 IR thoracentesis w/tube CT Routine Hospital Course (1) Pneumothorax after biopsy: occurred iatrogenically during procedure for left lung nodule CT guided biopsy with IR. Pigtail chest tube placed by IR and f/u CXR this morning, February 10 reveals complete resolution of the pneumothorax. The left pigtail catheter has been clamped by pulmonology and another portable chest x-ray will be obtained later today. If this is also negative, then the catheter will be removed and she will be discharged home. Pathology report is negative for malignancy (2) Pulmonary nodule: LLL 1.7cm nodule. Had EBUS with biopsy in 09/2022 without enough tissue for diagnosis; then had repeat chest CT 12/2022 which showed stable to increased size and now with IR guided CT biopsy w/ samples taken. Pathology remains negative. She had a previous negative PET CT scan also. She states she is not going to undergo any more diagnostic testing at this time. (3) Hypertension: Stable. Continue current medical management (4) COPD (chronic obstructive pulmonary disease): Stable. Continue current medical management (5) Hyperlipidemia: Stable. Continue statin and fish oil (6) CAD (coronary artery disease): Stable. Continue current medical management (7) Diabetic peripheral neuropathy: Stable. Continue home gabapentin (8) Type 2 diabetes mellitus: Hold home metformin while inpatient. ADA diet. Sliding scale coverage. (9) Renal artery stenosis: on LEFT. Not severe enough for intervention. Outpatient surveillance and management (10) Osteopenia: continue Fosamax and vit D (11) GERD (gastroesophageal reflux disease): Stable. Continue PP Plan Hopefully home later today, February 10, if chest x-ray remains negative with left pigtail catheter clamped which will subsequently be removed Total Time Total Time Spent Total Time Spent (In Minutes): 45 minutes Discharge Plan Discharge Items Patient Disposition: Home - Self-Care Reason For Visit: R91.1 - Solitary pulmonary nodule Discharge Diagnosis: Small left apical pneumothorax after left lung biopsy Activity: Resume your previous activity Non-emergency contact: Primary Care Provider Call non-emergency contact if: your symptoms worsen Follow-up/Referrals: Sharda Aragon CRNP [Primary Care Provider] - Diet: Carb Consistent or DM2 Addtl Attending Provider Instructions: Follow-up with your physicians as planned Pending Studies at Discharge: No Stand-Alone Forms: [employer], Smoking Cessation Medications and DC Order Prescriptions: Continued (DME) OneTouch Verio test strips Strip See Rx Instructions .Route Qty: 200 3RF Rx Instructions: test twice a day carvedilol 25 mg tablet 25 mg PO BID Qty: 180 3RF Rx Instructions: must administer with a meal/food terazosin 5 mg capsule 5 mg PO BID Qty: 90 3RF spironolactone 50 mg tablet 50 mg PO QAM Qty: 30 3RF metformin 1,000 mg tablet 500 mg PO TID losartan 50 mg tablet 50 mg PO BID Qty: 180 3RF multivitamin Tablet 1 tab PO QAM Qty: 30 0RF albuterol sulfate 90 mcg/actuation HFA aerosol inhaler 2 puff inhalation QID PRN (Reason: shortness of breath or wheezing) Qty: 8.5 0RF alendronate 70 mg tablet 70 mg PO WK Patient Comments: MONDAY MORNING Rx Instructions: takes on monday 70 mg PO once weekly; Take with full glass of water on an empty stomach. Remain upright and wait 40 minutes before eating/drinking rosuvastatin 20 mg tablet 20 mg PO HS fluticasone propionate [Flonase Allergy Relief] 50 mcg/actuation Ezel,Suspension 1 spray INTRANASAL UD PRN (Reason: Congestion) Rx Instructions: administer into each nostril cholecalciferol (vitamin D3) [Vitamin D3] 50 mcg (2,000 unit) Capsule 50 mcg PO QAM ascorbic acid (vitamin C) 1,000 mg tablet extended release 1,000 mg PO QAM gabapentin 400 mg capsule 400 - 800 mg PO BID Patient Comments: 400 MG MORNING , 400 MG SUPPER, AND 800 MG BEDTIME. Rx Instructions: 400 mg PO twice daily and 2 tablets at bedtime aspirin 81 mg tablet,delayed release (DR/EC) 81 mg PO HS cranberry 500 mg capsule 450 mg PO QAM Rx Instructions: administer with meals omega 1-pvs-rfi-fish oil [Fish Oil] 1,000 mg (120 mg-180 mg) capsule 1 cap PO QAM esomeprazole magnesium 40 mg capsule,delayed release(DR/EC) 20 mg PO QDD Anoro Ellipta 62.5-25 mcg/actuation blister with device 1 inh inhalation DAILY Qty: 60 0RF Discharge Orders: Discharge Order (Routine); Ordered 02/10/23 Ordered By: Martin Garcia/Other Patient Handouts: Managing Type 2 Diabetes, Special Foot Care for Diabetes Admission Data Admit Date/Time: 02/08/23 15:22 Attending Provider: Martin Knight Admit Provider: Alessandra Martin Primary Care Provider: Sharda Aragon Other Providers: Lexie Melgar Coding Level of Care Code 40813 INP/OBS DISCH >30 MIN Diagnoses Pneumothorax after biopsy J95.811 Pulmonary nodule R91.1 Hypertension I10 COPD (chronic obstructive pulmonary disease) J44.9 Hyperlipidemia E78.5 CAD (coronary artery disease) I25.10 Diabetic peripheral neuropathy E11.42 Type 2 diabetes mellitus E11.9 Renal artery stenosis I70.1 Osteopenia M85.80 GERD (gastroesophageal reflux disease) K21.9
[2023-02-10] MEDS ORDERED: DICLOFENAC SOD 1% GEL 100 GM TUBE EXT SCH ×2 (14:37→21:00)
--- NOTE | 2023-02-10 16:21 | XRay Report ---
XR chest 1V portable HISTORY: 77 years-old Female left PNX follow-up study in a patient with a left-sided pneumothorax COMPARISON: 02/10/2023 TECHNIQUE: AP view of the chest FINDINGS: Left basilar pleural catheter remains in place. No pneumothorax identified. The cardiomediastinal ian houette is stable. No evidence for pulmonary edema. Bilateral shoulder rotator cuff calcific tendinos is. IMPRESSION: Left basilar pleural catheter in place. No pneumothorax. ACT 112: Negative or not required by law. The above report was generated using voice recognition software. It may contain grammatical, syntax o r spelling errors. Electronically signed by: Syed Reyes M.D. 02/10/2023 4:19 PM
[2023-02-10] MEDS: ACETAMINOPHEN 325 MG TAB PO PRN (17:32)
--- NOTE | 2023-02-10 18:22 | Procedure Note ---
Procedure Note Date of Service February 10, 2023 Note Procedure: Pigtail chest tube removal Manager Summer: Dr. Lexie Melgar Indication: Resolution of pneumothorax Consent: Verbal consent was obtained from the patient Procedure: Under aseptic precautions and sterile condition the bandage was removed. Sutures around the pigtail catheter site were removed. The pigtail thread was unwound. On exhalation pigtail catheter was pulled out. It was found to be intact. It was cleaned with alcohol, Vaseline gauze was placed on top of it. It was dressed with 4 x 4's and tape The patient tolerated the procedure without obvious complication Complications: None Blood loss: None Recommendations: I advised the patient and patient's daughter not to lift anything heavy for the next 10-14 days Case was discussed with RN as well as Addie Spencer Please note the above document was generated using voice recognition software. It may contain grammatical, syntax or spelling errors.Any formal questions or concerns about the content, text or information contained within the body of this dictation should be directly addressed to the provider for clarification. Coding CPT Codes Pulmonary/Thoracic - Pulmonary and Thoracic: 64402 Remove lung catheter ([id number]) [facility] [place] Procedure Codes (Charges) Pulmonary/Thoracic Procedure 1: Pulmonary and Thoracic: 35957 Remove lung catheter
--- OUTSIDE RECORDS SUMMARY | 2023-02-17 01:03 | External Medical Summary ---
Author Name Unknown Address Unknown Organization : Laboratory Report Ordering Provider Test Date Status KEREN CONTRERAS 12/02/2015 15:40:00 Final Obs # Observation Date Value Abnormality Reference Status Performing Location 0 Source 12/02/19 16 15:40 CLEAN CATCH URINE Final 1 Bacteria identified in Unspecified specimen by Culture 12/05/19 16 13:18 >100,000 COLONIES/ML ESCHERICHIA COLI Final 2 Bacteria identified in Unspecified specimen by Culture 12/05/19 16 13:18 LESS THAN 10,000 COLONIES/ML MIXED MARY Final 3 12/05/19 16 14:18 12/05/2015 FINAL Final 4 Bacteria identified in Isolate by Culture 12/05/19 16 13:18 ESCHERICHIA COLI Abnormal Final
--- OUTSIDE RECORDS SUMMARY | 2023-02-17 01:03 | External Medical Summary | Continuity of Care Document ---
Author Name Unknown Organization [facility] [id number] Address [address] [place] [id number] Care Team Providers Care Train Engineer Name Role Phone Alyson Sierra Primary Care Physician [phone] [id number] Date(s): 07/18/22 - 07/18/22 [facility] [address] [place] [id number] [facility] [address] [place] [id number] Encounter Diagnosis Diabetes(Discharge Diagnosis) - 07/18/22 Tinea unguium(Discharge Diagnosis) - 07/18/22 Discharge Disposition: Home or Self Care Attending Physician: VIRGINIE Sierra Christina L Referring Physician: VIRGINIE Sierra Christina L Allergies, Adverse Reactions, Alerts Substance Reaction Severity Status amoxicillin unknown Active nitrofurantoin unknown Active trimethoprim unknown Active Cipro hives unknown Active Keflex unknown Active Pollen unknown Active Cymbalta anxiety unknown Active oral contrast dye hives Active DULoxetine unknown Active traMADol anxiety Active Assessment and Plan Extracted from: Title:Orthopaedics Office Visit Note Author:Jaziel Singh DPM, Christina L Date:07/18/22 1.Diabetes Discussed with patienthistory ofneuropathyshe did ask if there is anything further that could be prescribed and at this point I recommend she continueher gabapentin per her doctors recommendations. Additionally I recommend for patient to perform daily foot checksand to wear supportive shoe gear I did offer diabetic shoe gear withwhich patient declined. May consider in the future. 25-minuteinitial visit,6-minute chart review,19 minutes [id number] 2.Tinea unguium -Patient unable to provide self care to toenails due to DM - verbal consent obtained for debridement -Recommend toenail debridement -Patient had toenails of bilateral digits 1-5 debrided using nail nippers to tolerance, no bleeding noted -Patient instructed to use emery board to nails once per week -Patient had no ingrown toenails or infection noted -Patient is to follow up in 2-3 months for treatment if needed in the future Medications aspirin 81 mg oral capsule Start: 07/18/22 9:26:00 EST Start Date: 07/18/22 Status: Ordered carvedilol 12.5 mg oral tablet Start: 07/18/22 9:25:00 EST Start Date: 07/18/22 Status: Ordered cinnamon Start: 07/18/22 9:27:00 EST Start Date: 07/18/22 Status: Ordered cranberry oral capsule Start: 07/18/22 9:26:00 EST Start Date: 07/18/22 Status: Ordered esomeprazole 40 mg oral delayed release capsule Start: 07/18/22 9:26:00 EST Start Date: 07/18/22 Status: Ordered Fish Oil oral capsule Start: 07/18/22 9:27:00 EST Start Date: 07/18/22 Status: Ordered fluticasone 50 mcg/inh nasal spray Start: 07/18/22 9:26:00 EST Start Date: 07/18/22 Status: Ordered gabapentin 400 mg oral capsule Start: 07/18/22 9:25:00 EST Start Date: 07/18/22 Status: Ordered losartan 50 mg oral tablet TAKE 1 TABLET BY MOUTH TWICE DAILY Start Date: 07/18/22 Status: Ordered metFORMIN 500 mg oral tablet Start: 07/18/22 9:25:00 EST Start Date: 07/18/22 Status: Ordered multivitamin Start: 07/18/22 9:27:00 EST, 1 tab, PO, Daily Start Date: 07/18/22 Status: Ordered ONETOUCH VERIO YOCASTA Start: 07/18/22 9:26:00 EST, ONETOUCH VERIO YOCASTA Start Date: 07/18/22 Status: Ordered simvastatin 10 mg oral tablet Start: 07/18/22 9:25:00 EST Start Date: 07/18/22 Status: Ordered terazosin 5 mg oral capsule Start: 07/18/22 9:24:00 EST, 1 cap, PO, bid Start Date: 07/18/22 Status: Ordered Vitamin C Start: 07/18/22 9:27:00 EST Start Date: 07/18/22 Status: Ordered Vitamin D3 Start: 07/18/22 9:27:00 EST Start Date: 07/18/22 Status: Ordered Mental Status 07/18/22 Barriers to Learning one year None evide nt Mandatory Health Literacy Documentation Yes Health Literacy Communication Barriers N ever Primary Language Eritrean Problem List Condition Confirmation Course Effective Dates Status Health St atus Informant Diabetes Confirmed Active Tinea unguium Confirmed Active Diagnosis Diagnosis Type Effective Dates Health Status Cl inical Service Informant Diabetes Discharge Diagnosis 07/18/22 Tinea unguium Discharge Diagnosis 07/18/22 Procedures Procedure Date Related Diagnosis Body Site Status Cataract Completed Hysterectomy Completed Mastectomy 1 Completed 1double mastectomy Vital Signs Most recent to oldest [Reference Range]: 1 Height 163 cm (07/18/22 9:28 AM) Patient Weight 59.4 kg (07/18/22 9:28 AM) Body Mass Index 22.36 kg/m2 (07/18/22 9:28 AM) Social History Social History Type Response Smoking Status Never smoked cigaret yocasta Sex Female Patient Care team information Personnel Name: VIRGINIE Sierra, Alyson Le Address: Address: [facility] [address] [place] [id number]
--- OUTSIDE RECORDS SUMMARY | 2023-02-17 01:03 | External Medical Summary | Continuity of Care Document ---
Author Name Unknown Organization [place] [address] [facility] Address [address] [place], [place] [id number] Care Team Providers Care Lifeguard Name Role Phone Sharda Aragon Primary Care Physician [phone] [id number] Date[facility]s): 10/20/22 - 10/20/22 [place] [address] [place] [address] [phone] Encounter Diagnosis Renal artery stenosis(Discharge Diagnosis) - 10/20/22 Aortic ectasia, abdominal(Discharge Diagnosis) - 10/20/22 Discharge Disposition: Home or Self Care Attending Physician: MD Hayward Eugene J Referring Physician: ANGIE Chapa Tara J Allergies, Adverse Reactions, Alerts Substance Reaction Severity Status amoxicillin unknown Active nitrofurantoin unknown Active trimethoprim unknown Active Cipro hives unknown Active Keflex unknown Active Pollen unknown Active Cymbalta anxiety unknown Active oral contrast dye hives Active DULoxetine unknown Active traMADol anxiety Active Assessment and Plan Extracted from: Title:Clinical Document Author:ANGIE Allison Lynn Date:10/20/22 [facility] OUTPATIENT NOTE Name: JULIA ARAGON Patient Number: [id number] : 1945 Date of Service: 10/20/2022 Chief Complaint: _New patient consultation for renal artery stenosis HPI: _Ms. Aragon is an elderly female who presents to Dr. Hayward's vascular surgery clinic today for evaluation of possible renal artery stenosis. Patient states that she was noted to have high blood pressures when she went for a colonoscopy in July 2022, and she has been having difficulty getting it under control since that time. She states that she had classically been on 2 medications [place], and [place] here a year or so ago and has remained on those medications. She states that her blood pressures have been running in the 240/120 range since July. She states that her primary care physician has changed one of her medications, but that she is not scheduled to see her physician back until November 2022. She denies any significant history of kidney problems and does not see a kidney doctor. She does note that a few years ago she was evaluated [place] living in another state and found to have adrenal cysts, but that these did not show up on her CT abdomen pelvis recently. She denies headache, fever, chest pain, shortness of breath, abdominal pain, nausea, vomiting, rest pain, claudication, nonhealing wounds or ulcers, other complaints. Review of systems: A total of 14 systems were reviewed and are negative aside from what is related in her HPI Patient underwent a renal artery ultrasound performed at [facility] on 09/01/2022 which demonstrates atherosclerosis with PSV in the proximal left renal artery suggestive of renal artery stenosis. CT of the abdomen and pelvis without contrast performed on 09/01/2022 demonstrates mild atherosclerotic disease of her renal arteries, as well as mild ectasia of her infrarenal abdominal aorta measuring 2 cm Current Home Meds: (Last Updated 10/20 09:15) ascorbic acid (Vitamin C) 1,000 mg PO Daily aspirin (aspirin 81 mg oral capsule) carvedilol (carvedilol 12.5 mg oral tablet) 12.5 mg PO bid cholecalciferol (Vitamin D3) 50 mcg PO Daily cinnamon 500 mg po daily cranberry (cranberry oral capsule) 1 capsule po daily esomeprazole (esomeprazole 40 mg oral delayed release capsule) 40 mg PO Daily fluticasone nasal (fluticasone 50 mcg/inh nasal spray) 50 mcg each nostril Daily gabapentin (gabapentin 400 mg oral capsule) 400 mg PO qid losartan (losartan 50 mg oral tablet) TAKE 1 TABLET BY MOUTH TWICE DAILY metFORMIN (metFORMIN 500 mg oral tablet) 500 mg PO tid multivitamin 1 tab PO Daily omega-3 polyunsaturated fatty acids (Fish Oil oral capsule) 1 cap po daily simvastatin (simvastatin 10 mg oral tablet) 10 mg PO qPM terazosin (terazosin 5 mg oral capsule) 5 mg PO bid unlisted medication (ONETOUCH VERIO PAUL) Allergies and Sensitivities: nitrofurantoin(unknown) DULoxetine(unknown) Keflex(unknown) Cipro(hives) Cipro(unknown) Cymbalta(anxiety) Cymbalta(unknown) traMADol(anxiety) oral contrast dye(hives) Pollen(unknown) trimethoprim(unknown) amoxicillin(unknown) Past Medical History: Problems: Aortic ectasia, abdominal Renal artery stenosis Tinea unguium Diabetes Hypertension Hypercholesterolemia Neuropathy Gastroesophageal reflux disease Breast cancer Mitral valve regurgitation Cardiac murmur Surgical history: Bilateral mastectomy with breast reconstruction. Colonoscopy, cataract surgery, hysterectomy. Tonsillectomy, appendectomy, breast biopsy Family history: Positive for coronary disease, hypertension, diabetes, cancer. Social history: Positive for a past history of smoking cigarettes, she smoked 2 packs/week and quit in 2012. OBJECTIVE Vitals: Last Updated 10/20/22 09:23 Date Temp BP Location Pulse RR SpO2 Pain 10/20/22 0 10/20/22 226/96 Left Arm 67 98 10/10/22 0 Vital Signs are the last 3 documented. No Orthostatic Data Available Height and Weight: Last Updated 10/20/22 09:21 Date BMI Wt(kg) Wt(lb) Method Ht(cm) (ft-in) Method 10/20/22 56.9 125 Standing Scale 07/18/22 22.36 59.4 131 Standing Scale 163 5-4 Heights and Weights are the last 3 documented. Physical Exam Constitutional: In general patient is a healthy-appearing well-nourished well-developed elderly female in no distress. She is alert and oriented without any focal deficits. She does have cigarette like malodorous breath. Her head is normocephalic and atraumatic. Her carotids do not demonstrate a bruit. Her trachea is midline. Her heart is regular, her lungs are decreased slightly but clear. Her abdomen is soft nontender with normoactive bowel sounds in all 4 quadrants. Brachial radial and femoral pulses are +3. Lower extremity distal pulses are +2. She has brisk capillary refill and no sign of distal ischemia. ASSESSMENT: _ PLAN: _ 1 ) _renal artery stenosis Patient has very mild renal artery stenosis and based on ultrasound and CT imaging. She has poor control of her blood pressure in the office today and states that this is consistent with what she is experiencing at home. There are no indications for vascular surgical intervention at this time. We recommend that her family physician reevaluate the patient for improved hypertension control. She is currently taking terazosin, carvedilol, and losartan, at small/moderate doses which allows for additional medications to be added to her antihypertensive regimen. We will reevaluate her renal arteries in 1 year with an ultrasound. 2 ) _aortic ectasia CT imaging indicated aortic ectasia but only measured this to be 2 cm in diameter. We we will have this reevaluated when she returns in 1 year for surveillance purposes with an aortoiliac ultrasound. She is advised to call any other questions. She is agreeable to this plan. Thank you for letting us participate in the care of this patient. Medications aspirin 81 mg oral capsule Start: 07/18/22 9:26:00 EST Start Date: 07/18/22 Status: Ordered carvedilol 12.5 mg oral tablet Start: 07/18/22 9:25:00 EST, 1 tab, PO, bid Start Date: 07/18/22 Status: Ordered cinnamon Start: 07/18/22 9:27:00 EST, See Instructions, 500 mg po daily Start Date: 07/18/22 Status: Ordered cranberry oral capsule Start: 07/18/22 9:26:00 EST, See Instructions, 1 capsule po daily Start Date: 07/18/22 Status: Ordered esomeprazole 40 mg oral delayed release capsule Start: 07/18/22 9:26:00 EST, 1 cap, PO, Daily Start Date: 07/18/22 Status: Ordered Fish Oil oral capsule Start: 07/18/22 9:27:00 EST, See Instructions, 1 cap po daily Start Date: 07/18/22 Status: Ordered fluticasone 50 mcg/inh nasal spray Start: 07/18/22 9:26:00 EST, 50 mcg =, each nostril, Daily Start Date: 07/18/22 Status: Ordered gabapentin 400 mg oral capsule Start: 07/18/22 9:25:00 EST, 1 cap, PO, qid Start Date: 07/18/22 Status: Ordered losartan 50 mg oral tablet TAKE 1 TABLET BY MOUTH TWICE DAILY Start Date: 07/18/22 Status: Ordered metFORMIN 500 mg oral tablet Start: 07/18/22 9:25:00 EST, 1 tab, PO, tid Start Date: 07/18/22 Status: Ordered multivitamin Start: 07/18/22 9:27:00 EST, 1 tab, PO, Daily Start Date: 07/18/22 Status: Ordered ONETOUCH VERIO PAUL Start: 07/18/22 9:26:00 EST, ONETOUCH VERIO PAUL Start Date: 07/18/22 Status: Ordered simvastatin 10 mg oral tablet Start: 07/18/22 9:25:00 EST, 1 tab, PO, qPM Start Date: 07/18/22 Status: Ordered terazosin 5 mg oral capsule Start: 07/18/22 9:24:00 EST, 1 cap, PO, bid Start Date: 07/18/22 Status: Ordered Vitamin C Start: 07/18/22 9:27:00 EST, 1,000 mg =, PO, Daily Start Date: 07/18/22 Status: Ordered Vitamin D3 Start: 07/18/22 9:27:00 EST, 50 mcg =, PO, Daily Start Date: 07/18/22 Status: Ordered Mental Status 10/20/22 Barriers to Learning one year None evide nt Mandatory Health Literacy Documentation Yes Health Literacy Communication Barriers N ever Primary Language Frisian Problem List Condition Confirmation Course Effective Dates Status Health St atus Informant Aortic ectasia, abdominal Confirmed Active Diabetes Confirmed Active Tinea unguium Confirmed Active Renal artery stenosis Confirmed Active Diagnosis Diagnosis Type Effective Dates Health Status Cl inical Service Informant Aortic ectasia, abdominal Discharge Diagnosis 10/20/22 Renal artery stenosis Discharge Diagnosis 10/20/22 Procedures Procedure Date Related Diagnosis Body Site Status Cataract Completed Hysterectomy Completed Mastectomy 1 Completed 1double mastectomy Vital Signs Most recent to oldest [Reference Range]: 1 Patient Weight 56.9 kg (10/20/22 9:21 AM) Heart Rate 67 bpm (10/20/22 9:21 AM) Blood Pressure 226/96mmHg (10/20/22 9:21 AM) Cuff Pulse Pressure 130 mmHg (10/20/22 9:21 AM) BP Location # 1 Left Arm (10/20/22 9:21 AM) Social History Social History Type Response Smoking Status Former Smoker, quit > 1 yr Sex Female HVI Outpt Note * ANGIE Allison Lynn: PERFORM Event Display: HVI Outpt Note Authored Date: [id number] [facility] OUTPATIENT NOTE Name: JULIA ARAGON Patient Number: [id number] : 1945 Date of Service: 10/20/2022 Chief Complaint: _New patient consultation for renal artery stenosis HPI: _Ms. Aragon is an elderly female who presents to Dr. Hayward's vascular surgery clinic today for evaluation of possible renal artery stenosis. Patient states that she was noted to have high bloodpressures when she went for a colonoscopy in July 2022, and she has been having difficulty getting it under control since that time. She states that she had classically been on 2 medications [place], and moved back here a year or so ago and has remained on those medications. She states that her blood pressures have been running in the 240/120 range since July. She states that her primary care physician has changed one of her medications, but that she is not scheduled to see her physician back until November 2022. She denies any significant history of kidney problems and does not see a kidney doctor. She does note that a few years ago she was evaluated [place] living [place] and found to have adrenal cysts, but that these did not show up on her CT abdomen pelvis recently. She denies headache, fever, chest pain, shortness of breath, abdominal pain, nausea, vomiting, rest pain, claudication, nonhealing wounds or ulcers, other complaints. Review of systems: A total of 14 systems were reviewed and are negative aside from what is related in her HPI Patient underwent a renal artery ultrasound performed at [facility] on 09/01/2022 which demonstrates atherosclerosis with PSV in the proximal left renal artery suggestive of renal artery stenosis. CT of the abdomen and pelvis without contrast performed on 09/01/2022 demonstrates mild atherosclerotic disease of her renal arteries, as well as mild ectasia of her infrarenal abdominalaorta measuring 2 cm Current Home Meds: (Last Updated 10/20 09:15) ascorbic acid (Vitamin C) 1,000 mg PO Daily aspirin (aspirin 81 mg oral capsule) carvedilol (carvedilol 12.5 mg oral tablet) 12.5 mg PO bid cholecalciferol (Vitamin D3) 50 mcg PO Daily cinnamon 500 mg po daily cranberry (cranberry oral capsule) 1 capsule po daily esomeprazole (esomeprazole 40 mg oral delayed release capsule) 40 mg PO Daily fluticasone nasal (fluticasone 50 mcg/inh nasal spray) 50 mcg each nostril Daily gabapentin (gabapentin 400 mg oral capsule) 400 mg PO qid losartan (losartan 50 mg oral tablet) TAKE 1 TABLET BY MOUTH TWICE DAILY metFORMIN (metFORMIN 500 mg oral tablet) 500 mg PO tid multivitamin 1 tab PO Daily omega-3 polyunsaturated fatty acids (Fish Oil oral capsule) 1 cap po daily simvastatin (simvastatin 10 mg oral tablet) 10 mg PO qPM terazosin (terazosin 5 mg oral capsule) 5 mg PO bid unlisted medication (ONETOUCH VERIO PAUL) Allergies and Sensitivities: nitrofurantoin(unknown) DULoxetine(unknown) Keflex(unknown) Cipro(hives) Cipro(unknown) Cymbalta(anxiety) Cymbalta(unknown) traMADol(anxiety) oral contrast dye(hives) Pollen(unknown) trimethoprim(unknown) amoxicillin(unknown) Past Medical History: Problems: Aortic ectasia, abdominal Renal artery stenosis Tinea unguium Diabetes Hypertension Hypercholesterolemia Neuropathy Gastroesophageal reflux disease Breast cancer Mitral valve regurgitation Cardiac murmur Surgical history: Bilateral mastectomy with breast reconstruction. Colonoscopy, cataract surgery, hysterectomy. Tonsillectomy, appendectomy, breast biopsy Family history: Positive for coronary disease, hypertension, diabetes, cancer. Social history: Positive for a past history of smoking cigarettes, she smoked 2 packs/week and quitin 2012. OBJECTIVE Vitals: Last Updated 10/20/22 09:23 Date Temp BP Location Pulse RR SpO2 Pain 10/20/22 0 10/20/22 226/96 Left Arm 67 98 10/10/22 0 Vital Signs are the last 3 documented. No Orthostatic Data Available Height and Weight: Last Updated 10/20/22 09:21 Date BMI Wt(kg) Wt(lb) Method Ht(cm) (ft-in) Method 10/20/22 56.9 125 Standing Scale 07/18/22 22.36 59.4 131 Standing Scale 163 5-4 Heights and Weights are the last 3 documented. Physical Exam Constitutional: In general patient is a healthy-appearing well-nourished well- developed elderly female in no distress. She is alert and oriented without any focal deficits. She does have cigarette like malodorous breath. Her head is normocephalic and atraumatic. Her carotids do not demonstrate a bruit. Her trachea is midline. Her heart is regular, her lungs are decreased slightly but clear. Her abdomen is soft nontender with normoactive bowel sounds in all 4 quadrants. Brachial radial and femoral pulses are +3. Lower extremity distal pulses are +2. She has brisk capillary refill and no sign of distal ischemia. ASSESSMENT: _ PLAN: _ 1 ) _renal artery stenosis Patient has very mild renal artery stenosis and based on ultrasound and CT imaging. She has poor control of her blood pressure in the office today and states that this is consistent with what she is experiencing at home. There are no indications for vascular surgical intervention at this time. We recommend that her family physician reevaluate the patient for improved hypertension control. She is currently taking terazosin, carvedilol, and losartan, at small/moderate doses which allows for additional medications to be added to her antihypertensive regimen. We will reevaluate her renal arteriesin 1 year with an ultrasound. 2 ) _aortic ectasia CT imaging indicated aortic ectasia but only measured this to be 2 cm in diameter. We we will have this reevaluated when she returns in 1 year for surveillance purposes with an aortoiliac ultrasound.She is advised to call any other questions. She is agreeable to this plan. Thank you for letting us participate in the care of this patient. Electronic Signature on File CC: SAURABH Robbins [address] [id number] * Electronically Reviewed/Signed by: Temi Allison PA-C Author Signature Dt/Tm:10/20/2022 03:44 PM [facility] [place] [place] [address] LM Patient Care team information Care Team Personnel Name: SAURABH Aragon Rebecca Linn Position: Referring Member Role: Primary Care Provider Address: Address: [address] [address] Name: ANGIE Allison Lynn Position: Physician Retail Special Event Associate Exempt - Vasc Surg Member Role: Lifetime Relationship Address: Address: [address] [place] [id number] Care Team Related Persons Name: SUSANNAH DUTTON Address: home [address], [place] [phone] Name: FRENCH MEYER Address: home No Address Provided [place], [place] [id number]
--- OUTSIDE RECORDS SUMMARY | 2023-02-17 01:03 | External Medical Summary | Continuity of Care Document ---
Author Name Unknown Organization [place] [id number] Address [address] [place] [id number] Care Team Providers Care Grounds Manager Name Role Phone Gogo Chapa Primary Care Physician [phone] [facility] [id number] Date(s): 10/10/22 - 10/10/22 [facility] [address] [place], [place] [address] [address] [address] Encounter Diagnosis Diabetes(Discharge Diagnosis) - 10/10/22 Tinea unguium(Discharge Diagnosis) - 10/10/22 Discharge Disposition: Home or Self Care Attending Physician: VIRGINIE Sierra Christina L Referring Physician: ANGIE Chapa Tara J Allergies, Adverse Reactions, Alerts Substance Reaction Severity Status amoxicillin unknown Active nitrofurantoin unknown Active trimethoprim unknown Active Cipro hives unknown Active Keflex unknown Active Pollen unknown Active Cymbalta anxiety unknown Active oral contrast dye hives Active DULoxetine unknown Active traMADol anxiety Active Assessment and Plan Extracted from: Title:Follow Up Visit Author:VIRGINIE Sierra, Jonathan Le Date:10/10/22 1.Diabetes 2.Tinea unguium -Patient unable to provide self [...] Start Date: 07/18/22 Status: Ordered Mental Status 10/10/22 Barriers to Learning one year None evide nt Mandatory Health Literacy Documentation Yes Health Literacy Communication Barriers N ever Primary Language Slovak Problem List Condition Confirmation Course Effective Dates Status Health St atus Informant Diabetes Confirmed Active Tinea unguium Confirmed Active Diagnosis Diagnosis Type Effective Dates Health Status inical Service Informant Diabetes Discharge Diagnosis 10/10/22 Tinea unguium Discharge Diagnosis 10/10/22 Procedures Procedure Date Related Diagnosis Body Site Status Cataract Completed Hysterectomy Completed Mastectomy 1 Completed 1double mastectomy Social History Social History Type Response Smoking Status Never smoked cigaret paul Sex Female Ortho Outpt Note * VIRGINIE Sierra, Alyson Le: PERFORM Event Display: Ortho Outpt Note Authored Date: [id number] Chief Complaint nail care, no new concerns Primary Care Provider ANGIE Chapa, Gogo Lee Subjective Patient is a very pleasant 77-year-old female presenting today for care of her feet related to diabetes last seen July 18, 2022. Patient has no acute concerns with regards to her feet low risk diabetic. Review of Systems Diabetes Objective Physical Exam Problem focused bilateral feet: Dorsalis pedis pulse palpable2 out of 4, posterior tibial pulse palpable 2 out of 4, capillary refill time less than 3 seconds, skin turgoris good to all digits of both feet pedal hair is noted to be absent. Neurovascular status is significantly diminished patient was unable to feelmonofilament at distalextremities on either footthis is in relationship to known diabetic neuropathyas well paulette history of cancer. Patient does take gabapentin. Proprioception noted to be absent to distal extremities, light touch absent to distal extremities,monofilament testnoted to be absent to distal extremities. Skin is clean and drythere are no open wounds or lesions. Interspaces are intact without maceration or breakdown. Toenails of digits 1 through 5of both feet with dystrophy, thickening greater than 1 mm, pain, elongationhistory of total nail avulsion to right and left halluxthere is been regrowth of nail inneed of debridement. Assessment/Plan 1.Diabetes 2.Tinea unguium -Patient unable to provide self care to toenails due to DM - verbal consent obtained for debridement -Recommend toenail debridement -Patient had toenails of bilateral digits 1-5 debrided using nail nippers to tolerance, no bleedingnoted -Patient instructed to use emery board to nails once per week -Patient had no ingrown toenails or infection noted -Patient is to follow up in 2-3 months for treatment if needed in the future Electronic Signature on File Electronically Reviewed/Signed by: Alyson Sierra DPM Author Signature Dt/Tm:10/10/2022 02:10 PM Division of Sports Medicine CLR Patient Care team information Care Team Personnel Name: ANGIE Chapa, Gogo Lee Position: Referring Member Role: Primary Care Provider Address: Address: [address] [place] [address] [place] [id number] Care Team Related Persons Name: SUSANNAH DUTTON Address: home [address] [facility] [phone] Name: FRENCH MEYER Address: home No Address Provided [place] [phone]
--- OUTSIDE RECORDS SUMMARY | 2023-02-17 01:03 | External Medical Summary ---
Author Name Unknown Address Unknown Organization : Laboratory Report Ordering Provider Test Date Status ROE GRIFFIN 03/26/2016 10:30:00 Final Obs # Observation Date Value Abnormality Reference Status Performing Location 0 Source 6 10:31 CLEAN CATCH URINE Final 1 Bacteria identified in Unspecified specimen by Culture 6 14:06 LESS THAN 10,000 COLONIES/M L MIXED MARY Final 2 6 14:06 03/27/2016 FINAL Final
--- NOTE | 2023-02-17 09:41 | Coding Query ---
PATHOLOGY To promote full compliance with coding requirements relating to patient care, physician participation is requested in all cases of bone puller uncertainty. Please assist us with the question(s) below: Please review the Pathology report and please document any relevant diagnosis(es) below: Diagnosis(es): Nondiagnostic as there was only necrosis on the biopsy Thank you Nury DESAI
== END 2023-02-10 18:24 | disposition home or self-care (01) | DRG 201 ==
LOC: ASU 07:29 → PACUINP 10:41 → 4W 13:58 → SUATTDRO 15:22 → INTOOBSV 15:22 → OBSVTOIN 15:22